=== PATIENT | male | born 1940 | race Caucasian/White ===

== ENCOUNTER 2023-05-16 21:00 | Emergency (ER) | payer MEDICARE, MEDICAID, SELFPAY ==
--- NOTE | ~2023-05-16 | CT_ITS ---
EXAMINATION: CT cervical spine wo con DATE: 05/16/2023 22:28 INDICATION: Unwitnessed fall. Patient unable to provide history acute mental status. TECHNIQUE: Computed tomography (CT) of the cervical spine was performed without intravenous contrast. Automated exposure control and iterative reconstruction technique were employed. The dose-length pro duct was 273.59 mGy-cm. COMPARISON: None FINDINGS: 14 degree cervicothoracic levocurvature. Sagittal alignment is normal. Vertebral body heights are nor mal. No acute fracture. Moderate disc height loss at C5-C6 and mild disc height loss at C3-C4, C4-C5 and C6-C7. Small disc osteophyte complexes resulting in mild central canal stenosis at C3-C4 through C5-C6. Bilateral moderate uncovertebral osteoarthritis at C3-C4 through C5-C6. There is also a latera l mild to moderate right-sided predominant cervical facet osteoarthritis. This contributes to moderat e neural foraminal stenosis on the right at C3-C4 and on the left at C5-C6. Mild neural foraminal jay nosis at a few of the remaining cervical levels. Cervical soft tissues are unremarkable. Visualized u pper lungs are clear. IMPRESSION: 1. Mild to moderate cervical spondylosis. No acute osseous abnormality. Reviewed, dictated and finalized at location A. [employer]NAG[employer]
--- NOTE | ~2023-05-16 | CT_ITS ---
EXAMINATION: CT brain wo con DATE: 05/16/2023 22:28 INDICATION: Anticoagulated patient post unwitnessed fall. Patient unable to provide history due to il ntal status. TECHNIQUE: Computed tomography (CT) of the head was performed without intravenous contrast. Sagittal and coronal reconstructions were performed. The mA was adjusted according to patient size. Iterative reconstruction technique was employed. The dose-length product was 1210.67 mGy-cm. COMPARISON: None FINDINGS: No fracture. Localized collection of CSF attenuation at the anterior aspect of the right middle crani al fossa which appears to exert mild mass effect upon the anterior right temporal lobe without associ ated encephalomalacia which could be most consistent with an arachnoid cyst measuring approximately 3 .5 x 2.5 x 2.0 cm. No acute intracranial hemorrhage, acute infarction or other abnormal extra axial f luid collection. There is mild scattered white matter hypoattenuation consistent with chronic small v essel ischemic disease. Symmetric prominence of the sulci consistent with moderate age-appropriate di ffuse cerebral volume loss. Ventricles are normal and symmetric. No mass/mass effect. The orbits and mastoid air cells are normal. Mucosal thickening and dependently layering fluid/mucus in the right ma xillary sinus. IMPRESSION: 1. No fracture or acute intracranial process. 2. Age-related changes including moderate diffuse volume loss and mild scattered white matter hypoatt enuation consistent with chronic small vessel ischemic disease. 3. Arachnoid cyst at the anterior right middle cranial fossa. 4. Mucosal thickening and dependently layering fluid in the right maxillary sinus. Correlate clinical ly for acute sinusitis. Reviewed, dictated and finalized at location A. X DEVELOPER IMPRESSION: 1. No fracture or acute intracranial process. 2. Age-related changes including moderate diffuse volume loss and mild scattere d white matter hypoattenuation consistent with chronic small vessel ischemic di sease. 3. Arachnoid cyst at the anterior right middle cranial fossa. 4. Mucosal thickening and dependently layering fluid in the right maxillary sin us. Correlate clinically for acute sinusitis.
[2023-05-16 21:07] VITALS: BP 141/87; PULSE 74; RESP 17; TEMP 37; O2SAT 100
[2023-05-16 22:57] VITALS: BP 118/70; PULSE 57; RESP 15; O2SAT 99
--- NOTE | 2023-05-16 23:11 | ED.GENADULT ---
HPI - General Adult General Chief complaint: Fall Stated complaint: fall Time Seen by Provider: 05/16/23 21:22 History of Present Illness HPI narrative: This is an 82-year-old male sent from the halfway for an unwitnessed fall. He is A&O x1. He has no complaints and does not remember any fall. Patient does take Eliquis Related Data Allergies Allergy/AdvReac Type Severity Reaction Status Date / Time No Known Allergies Allergy Verified 05/16/23 21:33 Exam Narrative: APPEARANCE: No apparent distress., patient smells of urine, A&O x1 which is baseline Head: atraumatic. EYES: EOMI, NOSE: Atraumatic NECK: Trachea midline RESPIRATORY: No increased rate of breathing CTAB CARDIOVASCULAR: RRR, ABDOMINAL: Non-distended soft nontender no guarding or rebound MUSCULOSKELETAl: head to toe trauma exam unremarkable NEURO: Alert. Cranial nerves 2-12 grossly intact. Sensation light touch, motor function cerebellar function intact for 4 extremities. Gait exam was deferred SKIN:: Warm, dry. Normal color PSYCHIATRIC: Normal affect Course Vital Signs Vital signs: Vital Signs Temperature 98.6 F 05/16/23 21:07 Pulse Rate 74 05/16/23 21:07 Respiratory Rate 17 05/16/23 21:07 Blood Pressure 141/87 H 05/16/23 21:07 Pulse Oximetry 100 05/16/23 21:07 Oxygen Delivery Room Air 05/16/23 21:07 Temperature 98.6 F 05/16/23 21:07 Pulse Rate 61 05/17/23 01:24 Respiratory Rate 15 05/17/23 01:24 Blood Pressure 119/76 05/17/23 01:24 Pulse Oximetry 97 05/17/23 01:24 Oxygen Delivery Room Air 05/16/23 21:07 Medical Decision Making [facility] [place] Narrative Medical decision making narrative: -Course: 82-year-old dementia patient presenting his fall. Trauma workup negative. Patient smelled of urine on arrival so screening lab work and UA were obtained which did not reveal evidence of infection. Patient be discharged back to halfway -DDX includes but is not limited to: intracranial hemorrhage, dementia, UTI, sepsis, dehydration -Co-morbidities complicating care: dementia, chronic anticoagulation -Social determinants of health: halfway resident, -Independent interpretation of studies: CT head and C-spine for acute injury. -Shared decision making / Disposition: discharge Vital Signs Vital Signs: Vital Signs Temperature 98.6 F 05/16/23 21:07 Pulse Rate 74 05/16/23 21:07 Respiratory Rate 17 05/16/23 21:07 Blood Pressure 141/87 H 05/16/23 21:07 Pulse Oximetry 100 05/16/23 21:07 Oxygen Delivery Room Air 05/16/23 21:07 Temperature 98.6 F 05/16/23 21:07 Pulse Rate 61 05/17/23 01:24 Respiratory Rate 15 05/17/23 01:24 Blood Pressure 119/76 05/17/23 01:24 Pulse Oximetry 97 05/17/23 01:24 Oxygen Delivery Room Air 05/16/23 21:07 Lab Data 05/17/23 00:14 05/17/23 00:14 Labs: Lab Results 05/17/23 05/17/23 Range/Units 00:14 02:20 WBC 7.6 (4.5-10.0) K/mm3 RBC 3.99 L (4.6-6.20) M/mm3 Hgb 12.5 L (14.0-18.0) g/dL Hct 38.5 L (42.0-52.0) % MCV 96.5 (80-100) fl MCH 31.3 (26-34) pg MCHC 32.5 (32-36) g/dl RDW 14.1 (11.5-14.5) % Plt Count 194 (150-375) k/mm3 MPV 10.9 H (7.4-10.4) fl Immature Gran % (Auto) 0.4 (0-0.5) % Neut % (Auto) 69.9 (45.5-73.1) % Lymph % (Auto) 20.1 (18.3-44.2) % Bond % (Auto) 7.3 (2.6-8.5) % Eos % (Auto) 1.6 (0-4.4) % Baso % (Auto) 0.7 (0.2-1.2) % Lymph # (Auto) 1.53 (0.9-3.2) K/mm3 Bond # (Auto) 0.6 (0.1-0.6) K/mm3 Eos # (Auto) 0.1 (0-0.3) K/mm3 Baso # (Auto) 0.1 (0.0-0.1) K/mm3 Abs Immat Gran (auto) 0.03 (0.00-0.031) K/mm3 Absolute Neuts (auto) 5.3 (1.3-6.7) K/mm3 Absolute Nucleated RBC 0.0 (0.0-0.012) K/mm3 Nucleated RBC % 0.0 (0.0-0.2) % Sodium 141 (137-145) mmol/L Potassium 4.3 (3.4-5.0) mmol/L Chloride 112 H (98-107) mmol/L Carbon Dioxide 23 (22-30) mmol/L Anion Gap 6 L (
[2023-05-17 00:23] LABS: Basophils Absolute Auto 0.1 K/mm3 (0.0-0.1); Basophils Percent Auto 0.7 % (0.2-1.2); Eosinophils Absolute Auto 0.1 K/mm3 (0-0.3); Eosinophils Percent Auto 1.6 % (0-4.4); Hematocrit 38.5 % (42.0-52.0); Hemoglobin 12.5 g/dL (14.0-18.0); Immature Granulocyte Absolute 0.03 K/mm3 (0.00-0.031); Immature Granulocyte Percent A 0.4 % (0-0.5); Lymphocytes Absolute Auto 1.53 K/mm3 (0.9-3.2); Lymphocytes Percent Auto 20.1 % (18.3-44.2); Mean Corpuscular HGB Conc 32.5 g/dl (32-36); Mean Corpuscular Hemoglobin 31.3 pg (26-34); Mean Corpuscular Volume 96.5 fl (80-100); Mean Platelet Volume 10.9 fl (7.4-10.4); Monocytes Absolute Auto 0.6 K/mm3 (0.1-0.6); Monocytes Percent Auto 7.3 % (2.6-8.5); Neutrophils Absolute Auto 5.3 K/mm3 (1.3-6.7); Neutrophils Percent Auto 69.9 % (45.5-73.1); Platelet Count Result 194 k/mm3 (150-375); Red Blood Count 3.99 M/mm3 (4.6-6.20); Red Cell Distribution Width 14.1 % (11.5-14.5); White Blood Count 7.6 K/mm3 (4.5-10.0)
[2023-05-17 00:31] LABS: Alanine Aminotransferase 10 U/L (6-50); Albumin Level 3.7 g/dL (3.5-5.1); Alkaline Phosphatase 75 U/L (38-126); Anion Gap 6 mmol/L (8-16); Aspartate Amino Transferase 13 U/L (17-59); Bilirubin,Total 0.7 mg/dL (0.2-1.3); Blood Urea Nitrogen 38 mg/dL (9-20); Calcium 12.4 mg/dL (8.4-10.2); Carbon Dioxide 23 mmol/L (22-30); Chloride 112 mmol/L (98-107); Estimated CRCL calculation 29 ml/min; Estimated Glomerular Filt Rate 39; Glucose 108 mg/dL (65-110); Potassium 4.3 mmol/L (3.4-5.0); Sodium 141 mmol/L (137-145)
[2023-05-17 01:24] VITALS: BP 119/76; PULSE 61; RESP 15; O2SAT 97
[2023-05-17 02:30] LABS: Appearance Urine Clear (Clear); Bacteria Urine None Seen /hpf; Bilirubin Urine Negative (Negative); Blood Urine 2+ (Negative); Color Urine Yellow (Yellow); Glucose Urine UA Negative (Negative); Ketones Urine Negative (Negative); Leukocyte Esterase Ur Trace LEU/UL (Negative); Nitrate Urine Negative (Negative); Non Pathogenic Casts 0-2; Protein Urine Negative (Negative); RBC Urine 21-50 /hpf (0-2); Specific Grav Ur 1.014 (1.001-1.035); Squamous Epithelial Cell Urine None seen /hpf (Few); WBC Urine 0-5 /hpf; pH Urine 6.5 (5.0-9.0)
[2023-05-17 02:39] LABS: Add Urine Microscopic? YES
== END 2023-05-17 03:37 ==
PROVIDERS: Emergency Provider Emergency Medicine; PCP Internal Medicine
DX: Z71.1 Person with feared health complaint in whom no diagnosis is made (principal); W19.XXXA Unspecified fall, initial encounter; Z79.01 Long term (current) use of anticoagulants
CPT/HCPCS: 36415; 70450; 72125; 80053; 81001; 85025; 99284

== ENCOUNTER 2023-05-23 13:16 | Inpatient (IN) | payer MEDICARE, MEDICAID, SELFPAY ==
[2023-05-23] VITALS (10 sets, daily range): BP systolic 124–140; BP diastolic 83–98; PULSE 67–88; RESP 13–20; TEMP 36–36.8; O2SAT 96–100
--- NOTE | ~2023-05-23 | US_ITS ---
EXAMINATION: US renal BI DATE: 05/25/2023 09:13 INDICATION: Acute on chronic kidney disease TECHNIQUE: Multiple grayscale and Doppler ultrasound images of the kidneys were obtained. COMPARISON: None. FINDINGS: The right kidney measures 11.4 x 6.8 x 7.8 cm and contains multiple cysts which measure up to 6.5 cm. The left kidney measures 10.4 x 6.5 x 5.6 cm. The kidneys demonstrate increased parenchyma l echogenicity. There is no hydronephrosis. The bladder is unremarkable. IMPRESSION: 1. Medical renal disease Reviewed, dictated and finalized at location B. AT OPERATOR IMPRESSION: 1. Medical renal disease
--- NOTE | ~2023-05-23 | XR_ITS ---
EXAMINATION: XR chest 1V portable INDICATION: Weakness TECHNIQUE: Portable AP chest at 1439 hours COMPARISON: None available FINDINGS: The lungs are free of acute opacities. No pleural effusion or pneumothorax. Surgical change s are noted near the gastroesophageal junction. The cardiomediastinal silhouette is normal. There lorna ears is an old left clavicle fracture. IMPRESSION: 1. No acute cardiopulmonary abnormality. Reviewed, dictated and finalized at location B. T CONTROL CLERK
--- NOTE | 2023-05-23 13:19 | ECG_ITS ---
Measurements Intervals [place] Rate: 76 P: 76 MT: 218 QRS: -72 QRSD: 160 T: 86 QT: 401 QTc: 451 Interpretive Statements SINUS RHYTHM WITH FIRST DEGREE AV BLOCK MARKED LEFT AXIS DEVIATION [QRS AXIS < -30] LEFT BUNDLE BRANCH BLOCK [120+ ms QRS DURATION, 80+ ms Q/S IN V1/V2, 85+ ms R IN I/aVL/V5/V6] NO PREVIOUS ECG AVAILABLE FOR COMPARISON Electronically Signed On 05-23-2023 15:38:52 ELEVATOR BUILDER by Everardo Valentin M.D.
[2023-05-23 13:51] LABS: Basophils Percent Auto 0.4 % (0.2-1.2); Eosinophils Percent Auto 0.2 % (0-4.4); Hematocrit 44.1 % (42.0-52.0); Hemoglobin 14.1 g/dL (14.0-18.0); Immature Granulocyte Absolute 0.07 K/mm3 (0.00-0.031); Immature Granulocyte Percent A 0.7 % (0-0.5); Lymphocytes Absolute Auto 1.08 K/mm3 (0.9-3.2); Lymphocytes Percent Auto 10.5 % (18.3-44.2); Mean Corpuscular Hemoglobin 31.2 pg (26-34); Mean Corpuscular Volume 97.6 fl (80-100); Mean Platelet Volume 11.4 fl (7.4-10.4); Monocytes Absolute Auto 0.7 K/mm3 (0.1-0.6); Monocytes Percent Auto 6.6 % (2.6-8.5); Neutrophils Absolute Auto 8.4 K/mm3 (1.3-6.7); Neutrophils Percent Auto 81.6 % (45.5-73.1); Platelet Count Result 228 k/mm3 (150-375); Red Blood Count 4.52 M/mm3 (4.6-6.20); White Blood Count 10.3 K/mm3 (4.5-10.0)
[2023-05-23 14:01] LABS: Creatine Kinase 28 U/L (55-170)
[2023-05-23 14:02] LABS: INR 1.6; Prothrombin Time 20.1 Seconds (11.1-14.7)
[2023-05-23 14:02] LABS: Alanine Aminotransferase 16 U/L (6-50); Alkaline Phosphatase 97 U/L (38-126); Anion Gap 12 mmol/L (8-16); Aspartate Amino Transferase 17 U/L (17-59); Blood Urea Nitrogen 49 mg/dL (9-20); Calcium 13.5 mg/dL (8.4-10.2); Carbon Dioxide 18 mmol/L (22-30); Chloride 114 mmol/L (98-107); Estimated CRCL calculation 19 ml/min; Estimated Glomerular Filt Rate 26; Glucose 167 mg/dL (65-110); Magnesium 2.7 mg/dL (1.6-2.3); Potassium 4.2 mmol/L (3.4-5.0); Sodium 144 mmol/L (137-145)
[2023-05-23 14:03] LABS: Partial Thromboplastin Time 33.1 SECONDS (22.3-36.8)
[2023-05-23 14:15] LABS: Troponin I 0.046 ng/mL (0.000-0.034)
[2023-05-23 14:27] LABS: Influenza A QL RT-PCR Positive (Negative); Influenza B QL RT-PCR Negative (Negative); RSV RNA, RT-PCR Negative (Negative); SARS-CoV-2 RNA PCR Negative (Negative)
[2023-05-23 14:37] LABS: Appearance Urine Clear (Clear); Bacteria Urine None Seen /hpf; Bilirubin Urine Negative (Negative); Blood Urine 3+ (Negative); Color Urine Yellow (Yellow); Glucose Urine UA Negative (Negative); Ketones Urine Trace mg/dL (Negative); Leukocyte Esterase Ur Trace LEU/UL (Negative); Need Manual Microscopic Reviewed; Nitrate Urine Negative (Negative); Protein Urine 1+ mg/dL (Negative); RBC Urine >100 /hpf (0-2); Specific Grav Ur 1.016 (1.001-1.035); Squamous Epithelial Cell Urine Occasional /hpf (Few); pH Urine 5.5 (5.0-9.0)
[2023-05-23 14:38] LABS: Add Urine Microscopic? YES
--- NOTE | 2023-05-23 14:56 | ED.GENADULT ---
HPI - General Adult General Chief complaint: Weakness Stated complaint: weakness Time Seen by Provider: 05/23/23 14:24 Source: patient Limitations: no limitations History of Present Illness HPI narrative: Patient is an 82-year-old male presents to the emergency department complaining of not feeling well. Patient states he has not been feeling well for approximately 1 week, admits to feeling dehydrated, admits to generalized body aches. Patient denies fever the patient admits to a possible slight dry cough. Patient denies chest pain, difficulty breathing, urinary discomfort, bloody bowel movements, diarrhea, nausea, vomiting, abdominal pain, rash, recent injuries, recent illness, sick contacts, numbness, focal weakness, history of blood clots, unilateral lower extremity swelling. patient does admit to some fatigue. Related Data Allergies Allergy/AdvReac Type Severity Reaction Status Date / Time No Known Allergies Allergy Verified 05/16/23 21:33 Review of Systems Review of Systems: A 10 system review of systems was completed on the patient and is negative except for what is stated in the HPI. Nursing and ancillary documentation was reviewed. [facility] Comments At time of signature, I have reviewed and agree with nursing past medical, surgical, social and family history unless otherwise noted. Please see the nursing chart for further information. There is no relevant family history pertinent to the presenting complaint. Exam Narrative: CONST: No acute distress. HENMT: Head is normocephalic and atraumatic. Dry mucous membranes. No posterior oropharynx erythema. EYES: No conjunctival icterus, injection, or pallor. PERRL. NECK: No meningeal signs. no palpable cervical lymphadenopathy. RESP: Able to speak in full sentences. Normal respiratory effort. CTAB. CARDIO: Regular rate. Regular rhythm. 2+ DP and radial pulses bilaterally. GI: Nondistended. No tenderness to palpation. Soft. : No CVA tenderness to palpation. SKIN: No rashes or lesions noted on exposed skin. NEURO: Oriented x3. Moves all extremities. No focal neurological deficits. EXTREM/MSK/BACK: No pedal edema. PSYCH: Normal affect. Course Vital Signs Vital signs: Vital Signs Temperature 96.8 F L 05/23/23 13:18 Pulse Rate 76 05/23/23 13:18 Respiratory Rate 20 05/23/23 13:18 Blood Pressure 124/86 05/23/23 13:18 Pulse Oximetry 99 05/23/23 13:18 Oxygen Delivery Room Air 05/23/23 13:18 Temperature 96.8 F L 05/23/23 13:18 Pulse Rate 74 05/23/23 13:45 Respiratory Rate 15 05/23/23 13:45 Blood Pressure 128/88 05/23/23 13:45 Pulse Oximetry 99 05/23/23 13:45 Oxygen Delivery Room Air 05/23/23 13:18 Medical Decision Making MDM Narrative Medical decision making narrative: Patient presents with the above complaint. Initial vitals are remarkable for no significant abnormalities. Physical examination as noted above. Plan discussed: Laboratory analysis, EKG, chest x-ray, continues cardiac monitoring, continuous pulse oximetry, 2 L bolus IV fluids normal saline for hydration. I spoke with the hospitalist on-call who has accepted the patient for admission. Differential Diagnosis Differential Diagnosis: Metabolic derangement, dehydration, ACS, viral syndrome, UTI, thyroid dysfunction. Medical Records Medical records reviewed: Yes I reviewed the external patient's medical records. Vital Signs Vital Signs: Vital Signs Temperature 96.8 F L 05/23/23 13:18 Pulse Rate 76 05/23/23 13:18 Respiratory Rate 20 05/23/23 13:18 Blood Pressure 124/86 05/23/23 13:18 Pulse Oximetry 99 05/23/23 13:18 Oxygen Delivery Room Air 05/23/23 13:18 Temperature 96.8 F L 05/23/23 13:18 Pulse Rate 74 05/23/23 13:45 Respiratory Rate 15 05/23/23 13:45 Blood Pressure 128/88 05/23/23 13:45 Pulse Oximetry 99 05/23/23 13:45 Oxygen Delivery Room Air 05/23/23 13:18 Lab Data Lab res
[2023-05-23] MEDS: SODIUM CHLORIDE 0.9% IV 1,000 ML 999 ML IV CONT ×2 (15:27)
[2023-05-23 15:29] LABS: Lipase 49 U/L (23-300); Phosphorus 3.8 mg/dL (2.5-4.5)
--- NOTE | 2023-05-23 15:42 | PM.IMHP ---
H&P: HPI History of Present Illness Date/Time: 05/23/23 15:42 Chief Complaint: Generalized Weakness Narrative: 82 y/o M presents here with generalized weakness with PMH of cerebral cysts, anorexia, TIA, CVA with residual deficits, vitamin D deficiency, dementia with psychotic disturbance, anxiety, hypercalcemia, DVT, and a cognitive communication deficits. Patient presented here with general malaise for the past week. States he has felt dehydrated . Accompanied by cough (dry), fatigue, and generalized body aches. Denies fever or chills. No CP, SOB, urinary symptoms, difficulty with urination, focal weakness or numbness, or N/V/D. Currently residing at [facility]. Patient refusing further questions. Initial VS at presentation: 96.8 F, HR 76, RR 20, 124/86, 99% on RA. ED workup showed no leukocytosis with WBC 10.3, anemia creatinine 2.4 ( previously 1.7 on 05/17), BUN 49, GFR 26, glucose 167, lactic acid 3.0, calcium 13.5 (previously 12.4 on 05/17), magnesium 2.7 CK 20, troponin 0.046, and UA suspicious for UTI. Viral PCR was positive for Flu A. CXR: no acute cardiopulmonary abnormality. EKG showed sinus rhythm with first-degree AV block, marked axis deviation, and LBB. Review of Systems Review of Systems: ROS unobtainable: Yes unobtainable due to mental status [facility] Past Medical History Medical History (Updated 05/23/23 @ 23:49 by Denice Armenta, EGG CRATER) Anorexia Anxiety Cerebral cysts Cognitive communication deficit CVA (cerebral vascular accident) Dementia with psychotic disturbance DVT (deep venous thrombosis) Hypercalcemia TIA (transient ischemic attack) Vitamin A deficiency Meds Home Medications and Allergies Home Medications Medication Instructions Recorded Confirmed Type amlodipine 10 mg tablet 10 mg PO DAILY 05/23/23 05/23/23 History apixaban 5 mg tablet (Eliquis) 5 mg PO BID 05/23/23 05/23/23 History aspirin 81 mg tablet 81 mg PO DAILY 05/23/23 05/23/23 History bisacodyl 10 mg rectal suppository 10 mg RECTAL DAILY PRN Constipation 05/23/23 05/23/23 History cyanocobalamin (vitamin B-12) 1,000 mcg subcut WEEKLY 05/23/23 05/23/23 History 1,000 mcg/mL injection solution donepezil 5 mg tablet 5 mg PO DAILY 05/23/23 05/23/23 History ergocalciferol (vitamin D2) 50,000 50,000 unit PO WEEKLY 05/23/23 05/23/23 History unit tablet haloperidol 0.5 mg tablet 0.5 mg PO DAILY 05/23/23 05/23/23 History haloperidol 1 mg tablet 1 mg PO DAILY 05/23/23 05/23/23 History magnesium citrate (Citroma oral 296 ml PO DAILY PRN Constipation 05/23/23 05/23/23 History solution) magnesium hydroxide 400 mg/5 mL 30 ml PO DAILY 05/23/23 05/23/23 History oral suspension (Milk of Magnesia) megestrol 400 mg/10 mL (40 mg/mL) 800 mg PO DAILY 05/23/23 05/23/23 History oral suspension memantine 5 mg tablet 5 mg PO BID 05/23/23 05/23/23 History mirtazapine 15 mg tablet 15 mg PO DAILY 05/23/23 05/23/23 History polyethylene glycol 3350 17 gram 17 g PO DAILY PRN Constipation 05/23/23 05/23/23 History oral powder packet quetiapine 25 mg tablet 25 mg PO DAILY 05/23/23 05/23/23 History sennosides 8.6 mg-docusate sodium 1 tab-cap PO BID 05/23/23 05/23/23 History 50 mg tablet (Senna Plus) sodium phosphates 19 gram-7 118 ml RECTAL ONCE PRN Constipation 05/23/23 05/23/23 History gram/118 mL enema (Fleet Enema) Allergies Allergy/AdvReac Type Severity Reaction Status Date / Time No Known Allergies Allergy Verified 05/16/23 21:33 Vital Signs Vital Signs - 24 hr 05/23/23 13:18 05/23/23 13:40 05/23/23 13:33 Temperature 96.8 F L Pulse Rate 76 78 78 Respiratory Rate 20 13 Blood Pressure 124/86 Pulse Oximetry 99 98 Oxygen Delivery Room Air 05/23/23 13:45 Temperature Pulse Rate 74 Respiratory Rate 15 Blood Pressure 128/88 Pulse Oximetry 99 Oxygen Delivery Exam Const: General: comfortable and no acute distress Other: non-toxic appearance, frail, , male
--- NOTE | 2023-05-23 16:39 | PC.NURSE ---
Patient arrived to unit. Patient is nonverbal for RN at this time. RN called [facility] where patient is from and asked them to fax paperwork and medications over as RN cannot complete admission or medication reconciliation from patient.
[2023-05-23 16:52] LABS: Reflex Lactic Acid Yes or No Add Lactic
[2023-05-23 17:11] LABS: Lactic Acid Reflex 1.9 mmol/L (0.7-2.0)
[2023-05-23 18:20] LABS: Vitamin D 25 Hydroxy 52.6 ng/mL
--- NOTE | 2023-05-23 21:47 | ADMGEN ---
This patient, Salo Morgna, was admitted to Medical Room 342-01. Patient/family oriented to hospital policies and general routines including ID bracelet, bed and alarms, visiting hours, pain management, procedures, bathroom and other care routines, personal items, smoking policy, room service/diet, and visiting hours. Information on how to activate the Rapid Response Team has been discussed. Patient/Family are encouraged to report perceived risks to care and to ask questions if they do not understand what they are told or what they should do.
[2023-05-23] MEDS: APIXABAN 5 MG TABLET PO (23:30)
[2023-05-23] MEDS: MEMANTINE 5 MG TABLET PO (23:30)
[2023-05-23] MEDS: SODIUM CHLORIDE 0.9% IV 1,000 ML 125 ML IV CONT (23:33)
[2023-05-24] VITALS (9 sets, daily range): BP systolic 110–138; BP diastolic 71–91; PULSE 66–74; RESP 18–20; TEMP 36.5–36.6; O2SAT 97–100
[2023-05-24 06:20] LABS: Hematocrit 37.2 % (42.0-52.0); Mean Corpuscular HGB Conc 32.3 g/dl (32-36); Mean Corpuscular Hemoglobin 31.6 pg (26-34); Mean Corpuscular Volume 97.9 fl (80-100); Mean Platelet Volume 11.3 fl (7.4-10.4); Platelet Count Result 187 k/mm3 (150-375); Red Cell Distribution Width 13.9 % (11.5-14.5)
[2023-05-24 06:28] LABS: Creatine Kinase 23 U/L (55-170)
[2023-05-24 06:29] LABS: Alanine Aminotransferase 10 U/L (6-50); Albumin Level 3.1 g/dL (3.5-5.1); Alkaline Phosphatase 75 U/L (38-126); Anion Gap 6 mmol/L (8-16); Aspartate Amino Transferase 15 U/L (17-59); Bilirubin,Total 0.8 mg/dL (0.2-1.3); Blood Urea Nitrogen 45 mg/dL (9-20); Calcium 12.2 mg/dL (8.4-10.2); Carbon Dioxide 19 mmol/L (22-30); Chloride 120 mmol/L (98-107); Estimated CRCL calculation 20 ml/min; Estimated Glomerular Filt Rate 29; Glucose 95 mg/dL (65-110); Potassium 3.8 mmol/L (3.4-5.0); Sodium 145 mmol/L (137-145)
[2023-05-24 06:39] LABS: Parathyroid Intact 280.2 pg/mL (7.5-53.5)
[2023-05-24 09:28] LABS: NT Pro B Type Natriuretic Pept 939 pg/mL (19.9-100); Troponin I 0.038 ng/mL (0.000-0.034)
[2023-05-24] MEDS: SENNA/DOCUSATE SODIUM TABLET 1 TAB PO ×2 (09:57→17:33)
[2023-05-24] MEDS: ASPIRIN 81 MG ENTERIC TABLET PO (09:57)
[2023-05-24] MEDS: QUEtiapine FUMARATE 25 MG TABLET PO (09:58)
[2023-05-24] MEDS: APIXABAN 5 MG TABLET PO ×2 (09:58→20:22)
[2023-05-24] MEDS: amLODIPine BESYLATE 5 MG TABLET 10 MG PO (09:58)
[2023-05-24] MEDS: MEMANTINE 5 MG TABLET PO ×2 (09:58→20:22)
[2023-05-24] MEDS: BENZONATATE 100 MG CAPSULE PO ×2 (09:58→17:33)
[2023-05-24] MEDS: HALOPERIDOL 0.5 MG TABLET 1.5 MG PO (10:02)
[2023-05-24] MEDS: MIRTAZAPINE 15 MG TABLET PO (10:03)
[2023-05-24] MEDS: MAGNESIUM HYDROXIDE SUSP 30 ML UDC PO (10:03)
[2023-05-24] MEDS: DONEPEZIL HCL 5 MG TABLET PO (10:03)
[2023-05-24] MEDS: MEGESTROL ACETATE (*CHEMO) ORAL SUSP 40 MG/ML SYR 800 MG PO (10:03)
[2023-05-24] MEDS: SODIUM CHLORIDE 0.9% IV 1,000 ML 125 ML IV CONT ×2 (10:06→20:23)
--- NOTE | 2023-05-24 11:07 | PCCARD ---
PATIENT REFUSED ECHOCARDIOGRAM 05/24/23 @11:00 - CANCELLED ORDER
--- NOTE | 2023-05-24 11:57 | PM.IMPN ---
Progress Note: A&P Assessment and Plan (1) Influenza A: Code(s): J10.1 - Influenza due to other identified influenza virus with other respiratory manifestations Status: Acute Assessment and Plan: - symptom onset: approx 05/16 - tested positive on: 05/23/23 - started on Tamiflu on 05/23 - continue supportive measures Tylenol p.r.n. Zofran p.r.n. Tessalon Perles p.r.n. IV hydration - no evidence of pneumonia on CXR No SOB. Patient denied cough, frequent sneezing observed on assessment (2) CHINEDU (acute kidney injury): Code(s): N17.9 - Acute kidney failure, unspecified Status: Acute Assessment and Plan: - Renal Function 05/17/23 -> 05/23/23 creatinine 1.7 -> 2.4 BUN 38 -> 49 ECC 29 -> 19 GFR 39 -> 26 - Nephrology consulted, awaiting recs. - IV Fluids- NS @ 100 - monitor renal function - monitor I&Os 05/24- creatinine- 2.20 BUN- 45 ECC- 20 GFR - 29 (3) Elevated troponin: Code(s): R79.89 - Other specified abnormal findings of blood chemistry Status: Acute Assessment and Plan: - Troponin: 0.046 -> 0.050 - EKG, initial: sinus rhythm with first-degree AV block, marked left axis deviation, LBB, no previous EKG for comparison. - no active chest pain - suspect demand ischemia source of troponin 05/24 Troponin continued to rend down -> 0.038 BNP elevated at 939- suspect demand ischemia Echo ordered (4) Elevated lactic acid level: Code(s): R79.89 - Other specified abnormal findings of blood chemistry Status: Acute Assessment and Plan: - does not meet SIRS criteria, no blood cultures ordered - lactic acid 3.0 - possible UTI, Flu A+ - given 2L bolus of NS, started on Ceftriaxone and Tamiflu - repeat lactic - suspect elevation secondary to current CHINEDU 05/24- Lactic acid trended down to 1.9 (05/23) (5) Hypercalcemia: Code(s): E83.52 - Hypercalcemia Status: Acute Assessment and Plan: - Ca 13.5, previously 12.4 on 05/17 - repeat post fluid resuscitation - PTH ordered, TSH within normal limits - add vitamin-D 25 hydroxy 05/24 PTH elevated 280.2 Ca- 12.2 ionized Ca ordered- Pending (6) Acute UTI: Code(s): N39.0 - Urinary tract infection, site not specified Status: Acute Assessment and Plan: - UA: 1+ protein, trace ketones, 3+ blood, trace leuk esterase, greater than 100 rbc's, 6-10 wbc's, occasional epithelial cells - UC pending - started on cephalexin, exchanged to ceftriaxone IVPB on 05/23 Patient continues to deny urinary symptoms Plan Flu A+, CHINEDU, and elevated calcium. awaiting nephrology consultation. Here for IV fluids, started on ceftriaxone, and PTH ordered. Diet: regular GI Prophylaxis: Not currently indicated DVT Prophylaxis: SCDs, continue home Eliquis Lines: pIV Code Status: Full Code Time Spent With Patient Time with patient: 15 - 25 minutes Subjective Date/time seen: 05/24/23 1000 Interval history: 82 year old male examined at bedside in interval assessment as he presented from [facility] to ER with weakness for the past few weeks. Patient expressed he felt dehydrated and had body aches. ED workup showed? no leukocytosis with WBC 10.3, anemia creatinine 2.4 ( previously 1.7 on 05/17),? BUN 49, GFR 26, glucose 167, lactic acid 3.0, calcium 13.5 (previously 12.4 on 05/17), magnesium 2.7 CK 20, troponin 0.046, and UA suspicious for UTI. Viral PCR was positive for Flu A. CXR: no acute cardiopulmonary abnormality. ? EKG showed sinus rhythm with first-degree AV block, marked axis deviation, and LBB. He was admitted for CHINEDU, UTI, Flu A+ and hypercalcemia. He is receiving IV fluids and ceftriaxone. Today he presents alert and expressed generalized weakness. He denies pain, chest pain, pain with urination, or SOB. He is noted to stop responding if too many questions are asked in this interview. Nephrology has been consulted and we appreciate any recommendat
--- NOTE | 2023-05-24 12:30 | P.CONNP_ITS ---
Assessment and Plan Assessment and plan (1) CHINEDU (acute kidney injury): Code(s): N17.9 - Acute kidney failure, unspecified Status: Acute Assessment and Plan: * mild improvement since admission * agree with trial of IVFs * check urine studies and renal ultrasound * CPK normal * follow repeat labs and UOP (2) CKD (chronic kidney disease): Code(s): N18.9 - Chronic kidney disease, unspecified Status: Chronic Assessment and Plan: * baseline creatinine/GFR not known * creatinine 1.7mg/dl noted earlier this month (on ER visit) * attempting to get records from nursing facility * suspect related to HTN, vascular disease, and age-related change (3) Influenza A: Code(s): J10.1 - Influenza due to other identified influenza virus with other respiratory manifestations Status: Acute Assessment and Plan: * positive testing in ER (on 05/23/23) * inititated on Tamiflu * continue supportive measures * follow respirator status (4) Hypercalcemia: Code(s): E83.52 - Hypercalcemia Status: Acute Assessment and Plan: * caclium 13.5 on admission (previously 12.4 on 05/17/23 ER visit) * improvement noted with IVFs * related to volume depletion? * elevated PTH noted with adequate Vitamin D * primary hyperparathyroidism? * given histroy of CKD, cannot discount secondary hyperparathyroidism * hold ergocalciferol * check SPEP and UPEP * consider bone scan and/pr NM parathyroid imaging * consider calcitonin versus pamidronate use but hold given improvement in calcium with current therapy * follow trend of repeat calcium levels (5) Acute UTI: Code(s): N39.0 - Urinary tract infection, site not specified Status: Acute Assessment and Plan: * admission UA suggestive * follow-up on urine culture * on antibiotics (6) Hypertension: Code(s): I10 - Essential (primary) hypertension Status: Chronic Assessment and Plan: * resonable control at this time * follow trend oif hemodynamics I will continue follow patient with you while he remains hospitalized and make further recommendations as deemed necessary. Thank you for allowing me to participate in care of this patient. History of Present Illness Reason for Consult Consult date: 05/24/23 Reason for consult: acute renal failure (on chronic kidney disease) Chief Complaint Chief complaint: influenza a History of Present Illness Narrative: All the information that I obtained is from review of the electronic medical record as well as the associated paper chart information from his nursing facility along with the physicians and nurses involved the patient's care as S is difficult to get much information from the patient due to his lack of cooperation and underlying dementia. The patient is an 82-year-old male with a past medical history as outlined below who presented to [facility] Emergency room for further evaluation generalized weakness. Apparently, the patient has been feeling quite weak for the last week in association with fatigue, dry cough, and generalized body aches. No reported fevers, chills, chest pain, shortness of breath, dysuria, numbness, tingling, nausea, vomiting, or diarrhea. He apparently has not been eating and drinking very well and the nursing staff at his facility felt he may also be getting dehydrated. Given these constellation of symptoms, he was transferred to the emergency room further assessment. Workup and evaluation in the emergency room demonstrated the patient be hemod
--- NOTE | 2023-05-24 12:30 | PM.CNNEP ---
Assessment and Plan Assessment and plan (1) CHINEDU (acute kidney injury): Code(s): N17.9 - Acute kidney failure, unspecified Status: Acute Assessment and Plan: mild improvement since admission agree with trial of IVFs check urine studies and renal ultrasound CPK normal follow repeat labs and UOP (2) CKD (chronic kidney disease): Code(s): N18.9 - Chronic kidney disease, unspecified Status: Chronic Assessment and Plan: baseline creatinine/GFR not known creatinine 1.7mg/dl noted earlier this month (on ER visit) attempting to get records from nursing facility suspect related to HTN, vascular disease, and age-related change (3) Influenza A: Code(s): J10.1 - Influenza due to other identified influenza virus with other respiratory manifestations Status: Acute Assessment and Plan: positive testing in ER (on 05/23/23) inititated on Tamiflu continue supportive measures follow respirator status (4) Hypercalcemia: Code(s): E83.52 - Hypercalcemia Status: Acute Assessment and Plan: caclium 13.5 on admission (previously 12.4 on 05/17/23 ER visit) improvement noted with IVFs related to volume depletion? elevated PTH noted with adequate Vitamin D primary hyperparathyroidism? given histroy of CKD, cannot discount secondary hyperparathyroidism hold ergocalciferol check SPEP and UPEP consider bone scan and/pr NM parathyroid imaging consider calcitonin versus pamidronate use but hold given improvement in calcium with current therapy follow trend of repeat calcium levels (5) Acute UTI: Code(s): N39.0 - Urinary tract infection, site not specified Status: Acute Assessment and Plan: admission UA suggestive follow-up on urine culture on antibiotics (6) Hypertension: Code(s): I10 - Essential (primary) hypertension Status: Chronic Assessment and Plan: resonable control at this time follow trend oif hemodynamics I will continue follow patient with you while he remains hospitalized and make further recommendations as deemed necessary. Thank you for allowing me to participate in care of this patient. History of Present Illness Reason for Consult Consult date: 05/24/23 Reason for consult: acute renal failure (on chronic kidney disease) Chief Complaint Chief complaint: influenza a History of Present Illness Narrative: All the information that I obtained is from review of the electronic medical record as well as the associated paper chart information from his nursing facility along with the physicians and nurses involved the patient's care as S is difficult to get much information from the patient due to his lack of cooperation and underlying dementia. The patient is an 82-year-old male with a past medical history as outlined below who presented to [facility] Emergency room for further evaluation generalized weakness. Apparently, the patient has been feeling quite weak for the last week in association with fatigue, dry cough, and generalized body aches. No reported fevers, chills, chest pain, shortness of breath, dysuria, numbness, tingling, nausea, vomiting, or diarrhea. He apparently has not been eating and drinking very well and the nursing staff at his facility felt he may also be getting dehydrated. Given these constellation of symptoms, he was transferred to the emergency room further assessment. Workup and evaluation in the emergency room demonstrated the patient be hemodynamically stable and afebrile. Routine blood test demonstrated the the foot with a a CBC with a normal white blood cell count and associated anemia with a chemistry that showed higher creatinine than baseline in association with hypercalcemia. His lactic acid was mildly elevated as well and his UA was somewhat concerning for possible urinary tract infection. Viral testing was done which was significant for infl
[2023-05-24] MEDS: OSELTAMIVIR PHOSPHATE 30 MG CAPSULE PO (17:33)
[2023-05-25] VITALS (9 sets, daily range): BP systolic 120–144; BP diastolic 75–80; PULSE 56–73; RESP 16–18; TEMP 36.4–37.2; O2SAT 96–97
[2023-05-25] MEDS: SODIUM CHLORIDE 0.9% IV 1,000 ML 75 ML IV CONT (04:52)
[2023-05-25 06:51] LABS: Basophils Percent Auto 0.6 % (0.2-1.2); Eosinophils Absolute Auto 0.2 K/mm3 (0-0.3); Eosinophils Percent Auto 3.1 % (0-4.4); Hematocrit 33.2 % (42.0-52.0); Hemoglobin 10.8 g/dL (14.0-18.0); Immature Granulocyte Absolute 0.05 K/mm3 (0.00-0.031); Immature Granulocyte Percent A 0.8 % (0-0.5); Lymphocytes Absolute Auto 1.55 K/mm3 (0.9-3.2); Lymphocytes Percent Auto 23.7 % (18.3-44.2); Mean Corpuscular HGB Conc 32.5 g/dl (32-36); Mean Corpuscular Hemoglobin 31.8 pg (26-34); Mean Corpuscular Volume 97.6 fl (80-100); Mean Platelet Volume 11.5 fl (7.4-10.4); Monocytes Absolute Auto 0.4 K/mm3 (0.1-0.6); Monocytes Percent Auto 6.1 % (2.6-8.5); Neutrophils Absolute Auto 4.3 K/mm3 (1.3-6.7); Neutrophils Percent Auto 65.7 % (45.5-73.1); Platelet Count Result 157 k/mm3 (150-375); Red Cell Distribution Width 13.6 % (11.5-14.5); White Blood Count 6.5 K/mm3 (4.5-10.0)
[2023-05-25 07:10] LABS: Alanine Aminotransferase 9 U/L (6-50); Albumin Level 2.6 g/dL (3.5-5.1); Alkaline Phosphatase 68 U/L (38-126); Anion Gap 5 mmol/L (8-16); Aspartate Amino Transferase 16 U/L (17-59); Bilirubin,Total 0.5 mg/dL (0.2-1.3); Blood Urea Nitrogen 38 mg/dL (9-20); Calcium 11.5 mg/dL (8.4-10.2); Carbon Dioxide 18 mmol/L (22-30); Chloride 121 mmol/L (98-107); Estimated CRCL calculation 22 ml/min; Estimated Glomerular Filt Rate 32; Glucose 87 mg/dL (65-110); Potassium 3.6 mmol/L (3.4-5.0); Sodium 144 mmol/L (137-145)
[2023-05-25] MEDS: ASPIRIN 81 MG ENTERIC TABLET PO (09:40)
[2023-05-25] MEDS: amLODIPine BESYLATE 5 MG TABLET 10 MG PO (09:40)
[2023-05-25] MEDS: DONEPEZIL HCL 5 MG TABLET PO (09:41)
[2023-05-25] MEDS: QUEtiapine FUMARATE 25 MG TABLET PO (09:41)
[2023-05-25] MEDS: MEGESTROL ACETATE (*CHEMO) ORAL SUSP 40 MG/ML SYR 800 MG PO (09:41)
[2023-05-25] MEDS: SENNA/DOCUSATE SODIUM TABLET 1 TAB PO ×2 (09:41→17:12)
[2023-05-25] MEDS: HALOPERIDOL 0.5 MG TABLET 1.5 MG PO (09:41)
[2023-05-25] MEDS: CYANOCOBALAMIN INJ 1,000 MCG/ML VIAL 1000 MCG SUB-Q (09:41)
[2023-05-25] MEDS: BENZONATATE 100 MG CAPSULE PO ×3 (09:41→17:12)
[2023-05-25] MEDS: MIRTAZAPINE 15 MG TABLET PO (09:41)
[2023-05-25] MEDS: APIXABAN 5 MG TABLET PO ×2 (09:41→20:11)
[2023-05-25] MEDS: MAGNESIUM HYDROXIDE SUSP 30 ML UDC PO (09:42)
[2023-05-25] MEDS: MEMANTINE 5 MG TABLET PO ×2 (09:42→20:11)
--- NOTE | 2023-05-25 10:56 | P.PNNP_ITS ---
Progress Note: A&P Assessment and Plan (1) CHINEDU (acute kidney injury): Code(s): N17.9 - Acute kidney failure, unspecified Status: Acute Assessment and Plan: * mild improvement since admission * continuetrial of IVFs * evaluation to date noted: * renal ultrasound c/w CKD/medcial renal disease * urine studies pending * CPK normal * UA noted * follow repeat labs and UOP (2) CKD (chronic kidney disease): Code(s): N18.9 - Chronic kidney disease, unspecified Status: Chronic Assessment and Plan: * baseline creatinine/GFR not known * creatinine 1.7mg/dl noted earlier this month (on ER visit) * awaiting records from nursing facility * suspect related to HTN, vascular disease, and age-related change (3) Influenza A: Code(s): J10.1 - Influenza due to other identified influenza virus with other respiratory manifestations Status: Acute Assessment and Plan: * positive testing in ER (on 05/23/23) * on Tamiflu * continue supportive measures * follow respirator status (4) Hypercalcemia: Code(s): E83.52 - Hypercalcemia Status: Acute Assessment and Plan: * wlow improvement noted * calcium 13.5 on admission (previously 12.4 on 05/17/23 ER visit) * related to just volume depletion? * improvement with just IVFs would argue at least a component of this... * elevated PTH noted with adequate Vitamin D * primary hyperparathyroidism? * given histroy of CKD, cannot discount secondary hyperparathyroidism * hold ergocalciferol * follow-up on SPEP and UPEP * consider bone scan and/pr NM parathyroid imaging (but suspect he may refuse as he did with Echo) * considered calcitonin versus pamidronate use but holding given improvement in calcium with current therapy * follow trend of repeat calcium levels (5) Hypertension: Code(s): I10 - Essential (primary) hypertension Status: Chronic Assessment and Plan: * resonable control at this time * follow trend oif hemodynamics Will continue to follow Subjective Date/time seen: 05/25/23 10:56 Interval history: Follow-up for acute kidney injury/acute renal failure on chronic kidney disease and hypercalcemia. Mentation seems about the same -- answers a few questions and then stops abruptly; calcium doing better with noted marginal improvement in creatinine; no apparent distress noted at the time of my visit. Exam Narrative: General: frail and elderly male in NAD Heart: normal S1 and S2; no rub Lungs: clear to auscultation Abdomen: soft, nontender, nondistended, positive bowel sounds Extremities: no cyanosis or clubbing; no edema Skin: warm and dry Objective Data Vital Signs Vital Signs: Vital Signs Temp Pulse Resp BP Pulse Ox O2 Del Method 05/25/23 10:30 98.1 F 73 16 120/80 96 05/25/23 08:00 56 L 05/25/23 06:00 97.6 F 56 L 18 144/75 H 97 05/24/23 23:07 97 Room Air 05/25/23 04:00 58 L 05/25/23 00:00 59 L 05/24/23 20:00 74 05/24/23 22:30 97.7 F 70 18 110/71 97 Intake/Output Intake/Output: Intake & Output 05/22/23 05/23/23 05/24/23 05/25/23 23:59 23:59 23:59 23:59 Intake Total 0 3660 1782 Balance 0 3660 1782
--- NOTE | 2023-05-25 10:56 | PM.PNNEP ---
Progress Note: A&P Assessment and Plan (1) CHINEDU (acute kidney injury): Code(s): N17.9 - Acute kidney failure, unspecified Status: Acute Assessment and Plan: mild improvement since admission continuetrial of IVFs evaluation to date noted: renal ultrasound c/w CKD/medcial renal disease urine studies pending CPK normal UA noted follow repeat labs and UOP (2) CKD (chronic kidney disease): Code(s): N18.9 - Chronic kidney disease, unspecified Status: Chronic Assessment and Plan: baseline creatinine/GFR not known creatinine 1.7mg/dl noted earlier this month (on ER visit) awaiting records from nursing facility suspect related to HTN, vascular disease, and age-related change (3) Influenza A: Code(s): J10.1 - Influenza due to other identified influenza virus with other respiratory manifestations Status: Acute Assessment and Plan: positive testing in ER (on 05/23/23) on Tamiflu continue supportive measures follow respirator status (4) Hypercalcemia: Code(s): E83.52 - Hypercalcemia Status: Acute Assessment and Plan: wlow improvement noted calcium 13.5 on admission (previously 12.4 on 05/17/23 ER visit) related to just volume depletion? improvement with just IVFs would argue at least a component of this... elevated PTH noted with adequate Vitamin D primary hyperparathyroidism? given histroy of CKD, cannot discount secondary hyperparathyroidism hold ergocalciferol follow-up on SPEP and UPEP consider bone scan and/pr NM parathyroid imaging (but suspect he may refuse as he did with Echo) considered calcitonin versus pamidronate use but holding given improvement in calcium with current therapy follow trend of repeat calcium levels (5) Hypertension: Code(s): I10 - Essential (primary) hypertension Status: Chronic Assessment and Plan: resonable control at this time follow trend oif hemodynamics Will continue to follow Subjective Date/time seen: 05/25/23 10:56 Interval history: Follow-up for acute kidney injury/acute renal failure on chronic kidney disease and hypercalcemia. Mentation seems about the same -- answers a few questions and then stops abruptly; calcium doing better with noted marginal improvement in creatinine; no apparent distress noted at the time of my visit. Exam Narrative: General: frail and elderly male in NAD Heart: normal S1 and S2; no rub Lungs: clear to auscultation Abdomen: soft, nontender, nondistended, positive bowel sounds Extremities: no cyanosis or clubbing; no edema Skin: warm and dry Objective Data Vital Signs Vital Signs: Vital Signs Temp Pulse Resp BP Pulse Ox O2 Del Method 05/25/23 10:30 98.1 F 73 16 120/80 96 05/25/23 08:00 56 L 05/25/23 06:00 97.6 F 56 L 18 144/75 H 97 05/24/23 23:07 97 Room Air 05/25/23 04:00 58 L 05/25/23 00:00 59 L 05/24/23 20:00 74 05/24/23 22:30 97.7 F 70 18 110/71 97 Intake/Output Intake/Output: Intake & Output 05/22/23 05/23/23 05/24/23 05/25/23 23:59 23:59 23:59 23:59 Intake Total 0 3660 1782 Balance 0 3660 1782 Meds/Results Medications: Active Medications Generic Name Dose Route Start Last Admin Trade Name Freq PRN Reason Stop Dose Admin Acetaminophen 500 mg 05/23/23 22:23 Acetaminophen 500 Mg Tablet PO Q4H PRN Mild Pain (1-3) or Fever Amlodipine Besylate 10 mg 05/24/23 09:00 05/25/23 09:40 Amlodipine Besylate 5 Mg Tablet PO 10 mg DAILY STEPHEN Administration Apixaban 5 mg 05/23/23 22:35 05/25/23 09:41 Apixaban 5 Mg Tablet PO 5 mg Q12HR STEPHEN Administration Aspirin 81 mg 05/24/23 09:00 05/25/23 09:40 Aspirin 81 Mg Enteric Tablet PO 81 mg QAM STEPHEN Administration Benzocaine 1 lozenge 05/23/23 22:23 Benzocaine/Menthol (*Bkc) 18 Ea Lozenge PO PRN PRN Sore Throat B
--- NOTE | 2023-05-25 12:19 | PM.IMPN ---
Progress Note: A&P Assessment and Plan (1) Influenza A: Code(s): J10.1 - Influenza due to other identified influenza virus with other respiratory manifestations Status: Acute Assessment and Plan: - symptom onset: approx 05/16 - tested positive on: 05/23/23 - started on Tamiflu on 05/23 - continue supportive measures Tylenol p.r.n. Zofran p.r.n. Tessalon Perles p.r.n. IV hydration - no evidence of pneumonia on CXR No SOB. Patient denied cough, frequent sneezing observed on assessment 05/25: Denies complaints. No pain or body aches. Afebrile and without respiratory distress. (2) CHINEDU (acute kidney injury): Code(s): N17.9 - Acute kidney failure, unspecified Status: Acute Assessment and Plan: - Renal Function 05/17/23 -> 05/23/23 creatinine 1.7 -> 2.4 BUN 38 -> 49 ECC 29 -> 19 GFR 39 -> 26 - Nephrology consulted, awaiting recs. - IV Fluids- NS @ 100 - monitor renal function - monitor I&Os 05/24- creatinine- 2.20 BUN- 45 ECC- 20 GFR - 29 05/25: Nephrology involved- Test pending - IV Fluids- NS @ 75 creatinine- 2.0 BUN- 68 ECC- 20 GFR - 32 Renal US- impression notes medical renal disease. (3) Elevated troponin: Code(s): R79.89 - Other specified abnormal findings of blood chemistry Status: Acute Assessment and Plan: - Troponin: 0.046 -> 0.050 - EKG, initial: sinus rhythm with first-degree AV block, marked left axis deviation, LBB, no previous EKG for comparison. - no active chest pain - suspect demand ischemia source of troponin 05/24 Troponin continued to rend down -> 0.038 BNP elevated at 939- suspect demand ischemia Echo ordered 05/25: Patient refused echo. Continues to have no active chest pain. BP 145/75. Continue to monitor vitals (4) Elevated lactic acid level: Code(s): R79.89 - Other specified abnormal findings of blood chemistry Status: Acute Assessment and Plan: - does not meet SIRS criteria, no blood cultures ordered - lactic acid 3.0 - possible UTI, Flu A+ - given 2L bolus of NS, started on Ceftriaxone and Tamiflu - repeat lactic - suspect elevation secondary to current CHINEDU 05/24- Lactic acid trended down to 1.9 (05/23) 05/25: NS at 75. Urine culture negative. (5) Hypercalcemia: Code(s): E83.52 - Hypercalcemia Status: Acute Assessment and Plan: - Ca 13.5, previously 12.4 on 05/17 - repeat post fluid resuscitation - PTH ordered, TSH within normal limits - add vitamin-D 25 hydroxy 05/24 PTH elevated 280.2 Ca- 12.2 ionized Ca ordered- Pending 05/25: Ca 11.5- Trending down. ionized Ca ordered- Pending. Repeat PTH ordered (6) Acute UTI: Code(s): N39.0 - Urinary tract infection, site not specified Status: Acute Assessment and Plan: - UA: 1+ protein, trace ketones, 3+ blood, trace leuk esterase, greater than 100 rbc's, 6-10 wbc's, occasional epithelial cells - UC pending - started on cephalexin, exchanged to ceftriaxone IVPB on 05/23 Patient continues to deny urinary symptoms 05/25: Patient continues to deny urinary symptoms. Urine culture negative. 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 Initially follows instructions, however, quickly refuses to respond. Per nursing staff this is his behavior with them. Per ER documentation he can be uncooperative and combative Plan Flu A+, CHINEDU, and elevated calcium. awaiting nephrology consultation. Here for IV fluids, started on ceftriaxone, and PTH ordered. Diet: regular GI Prophylaxis: Not currently indicated DVT Prophylaxis: SCDs, continue home Eliquis Lines: pIV Code Status: Full Code Time Spent With Patient Time with patient: 15 - 25 minutes Subjective Date/time seen: 05/25/23 100
[2023-05-25] MEDS: OSELTAMIVIR PHOSPHATE 30 MG CAPSULE PO (12:22)
[2023-05-26] VITALS (10 sets, daily range): BP systolic 124–153; BP diastolic 63–75; PULSE 57–73; RESP 18; TEMP 36.6–37.1; O2SAT 95–98
[2023-05-26] MEDS: SODIUM CHLORIDE 0.9% IV 1,000 ML 75 ML IV CONT ×2 (02:06→21:30)
[2023-05-26 06:45] LABS: Basophils Absolute Auto 0.1 K/mm3 (0.0-0.1); Basophils Percent Auto 0.7 % (0.2-1.2); Eosinophils Absolute Auto 0.2 K/mm3 (0-0.3); Eosinophils Percent Auto 2.2 % (0-4.4); Hematocrit 35.6 % (42.0-52.0); Hemoglobin 11.7 g/dL (14.0-18.0); Immature Granulocyte Absolute 0.03 K/mm3 (0.00-0.031); Immature Granulocyte Percent A 0.4 % (0-0.5); Lymphocytes Absolute Auto 1.84 K/mm3 (0.9-3.2); Lymphocytes Percent Auto 25.7 % (18.3-44.2); Mean Corpuscular HGB Conc 32.9 g/dl (32-36); Mean Corpuscular Hemoglobin 31.5 pg (26-34); Mean Platelet Volume 10.7 fl (7.4-10.4); Monocytes Absolute Auto 0.5 K/mm3 (0.1-0.6); Monocytes Percent Auto 6.6 % (2.6-8.5); Neutrophils Absolute Auto 4.6 K/mm3 (1.3-6.7); Neutrophils Percent Auto 64.4 % (45.5-73.1); Platelet Count Result 166 k/mm3 (150-375); Red Blood Count 3.71 M/mm3 (4.6-6.20); Red Cell Distribution Width 13.4 % (11.5-14.5); White Blood Count 7.2 K/mm3 (4.5-10.0)
[2023-05-26 06:56] LABS: Alanine Aminotransferase 12 U/L (6-50); Albumin Level 3.2 g/dL (3.5-5.1); Alkaline Phosphatase 79 U/L (38-126); Anion Gap 5 mmol/L (8-16); Aspartate Amino Transferase 17 U/L (17-59); Bilirubin,Total 0.5 mg/dL (0.2-1.3); Blood Urea Nitrogen 34 mg/dL (9-20); Calcium 11.6 mg/dL (8.4-10.2); Carbon Dioxide 19 mmol/L (22-30); Chloride 118 mmol/L (98-107); Estimated CRCL calculation 24 ml/min; Estimated Glomerular Filt Rate 34; Glucose 102 mg/dL (65-110); Potassium 3.4 mmol/L (3.4-5.0); Sodium 142 mmol/L (137-145)
[2023-05-26 10:15] LABS: Parathyroid Intact 271.6 pg/mL (7.5-53.5)
[2023-05-26] MEDS: MIRTAZAPINE 15 MG TABLET PO (10:24)
[2023-05-26] MEDS: QUEtiapine FUMARATE 25 MG TABLET PO (10:25)
[2023-05-26] MEDS: ASPIRIN 81 MG ENTERIC TABLET PO (10:25)
[2023-05-26] MEDS: DONEPEZIL HCL 5 MG TABLET PO (10:25)
[2023-05-26] MEDS: HALOPERIDOL 0.5 MG TABLET 1.5 MG PO (10:25)
[2023-05-26] MEDS: APIXABAN 5 MG TABLET PO ×2 (10:25→21:25)
[2023-05-26] MEDS: amLODIPine BESYLATE 5 MG TABLET 10 MG PO (10:25)
[2023-05-26] MEDS: MEMANTINE 5 MG TABLET PO ×2 (10:25→21:25)
[2023-05-26] MEDS: CALCITONIN SALMON INJ 400 UNITS/2 ML VIAL 200 UNITS SUB-Q ×2 (10:26→21:25)
[2023-05-26] MEDS: SENNA/DOCUSATE SODIUM TABLET 1 TAB PO ×2 (10:26→17:47)
[2023-05-26] MEDS: BENZONATATE 100 MG CAPSULE PO ×3 (10:26→17:46)
[2023-05-26] MEDS: MEGESTROL ACETATE (*CHEMO) ORAL SUSP 40 MG/ML SYR 800 MG PO (10:39)
[2023-05-26] MEDS: MAGNESIUM HYDROXIDE SUSP 30 ML UDC PO (10:39)
[2023-05-26 12:03] LABS: Kappa\\Lambda Light Chains 2.11 (0.26-1.65); Lambda Light Chain 34.3 mg/L (5.7-26.3)
--- NOTE | 2023-05-26 12:05 | P.PNNP_ITS ---
Progress Note: A&P Assessment and Plan (1) CHINEDU (acute kidney injury): Code(s): N17.9 - Acute kidney failure, unspecified Status: Acute Assessment and Plan: * improvement noted since admission * continue trial of IVFs * evaluation to date noted: * renal ultrasound c/w CKD/medical renal disease * urine studies pending * CPK normal * UA noted * follow repeat labs and UOP (2) CKD (chronic kidney disease): Code(s): N18.9 - Chronic kidney disease, unspecified Status: Chronic Assessment and Plan: * baseline creatinine/GFR not known * creatinine 1.7mg/dl noted earlier this month (on ER visit) * awaiting records from nursing facility (none available as of yet) * suspect related to HTN, vascular disease, and age-related change (3) Influenza A: Code(s): J10.1 - Influenza due to other identified influenza virus with other respiratory manifestations Status: Acute Assessment and Plan: * positive testing in ER (on 05/23/23) * on Tamiflu * continue supportive measures * follow respirator status (4) Hypercalcemia: Code(s): E83.52 - Hypercalcemia Status: Acute Assessment and Plan: * wlow improvement noted * calcium 13.5 on admission (previously 12.4 on 05/17/23 ER visit) * related to just volume depletion? * improvement with just IVFs would argue at least a component of this... * elevated PTH noted with adequate Vitamin D * primary hyperparathyroidism? * given histroy of CKD, cannot discount secondary hyperparathyroidism * hold ergocalciferol * follow-up on SPEP and UPEP * consider bone scan and/espana NM parathyroid imaging (but suspect he may refuse as he did with Echo) * dose with calcitonin today since calcium has not changed in the last 24 hours * follow trend of repeat calcium levels (5) Hypertension: Code(s): I10 - Essential (primary) hypertension Status: Chronic Assessment and Plan: * resonable control at this time * follow trend oif hemodynamics Not opposed to discharge from renal perspective when otherwise medically stable -- likely needs Endocrinology referral with regard to hypercalcemia and Nephr ology follow-up with regard to his underlying CKD but unclear the lobsterman benefits given his long-standing cognitive impairments and associated dementia. Will continue to follow Subjective Date/time seen: 05/26/23 12:05 Interval history: Follow-up for acute kidney injury/acute renal failure on chronic kidney disease and hypercalcemia. Mentation seems better but still with intermittent confusion; calcium unchanged in the last 24 hours but renal function a tad better; no apparent distress noted; no issues/events overnight or earlier today. Exam Narrative: General: frail and elderly male in NAD Heart: normal S1 and S2; no rub Lungs: clear to auscultation Abdomen: soft, nontender, nondistended, positive bowel sounds Extremities: no cyanosis or clubbing; no edema Skin: warm and intact Objective Data Vital Signs Vital Signs: Vital Signs Temp Pulse Resp BP Pulse Ox O2 Del Method 05/26/23 12:00 98.0 F 70 18 124/72 98 05/26/23 08:00 Room Air 05/26/23 08:13 96 Room Air 05/26/23 04:00 57 L 05/26/23 05:21 97.8 F 62 18 129/63 95 05/26/23 00:00 59 L 05/25/23 20:00 61 02/0
--- NOTE | 2023-05-26 12:05 | PM.PNNEP ---
Progress Note: A&P Assessment and Plan (1) CHINEDU (acute kidney injury): Code(s): N17.9 - Acute kidney failure, unspecified Status: Acute Assessment and Plan: improvement noted since admission continue trial of IVFs evaluation to date noted: renal ultrasound c/w CKD/medical renal disease urine studies pending CPK normal UA noted follow repeat labs and UOP (2) CKD (chronic kidney disease): Code(s): N18.9 - Chronic kidney disease, unspecified Status: Chronic Assessment and Plan: baseline creatinine/GFR not known creatinine 1.7mg/dl noted earlier this month (on ER visit) awaiting records from nursing facility (none available as of yet) suspect related to HTN, vascular disease, and age-related change (3) Influenza A: Code(s): J10.1 - Influenza due to other identified influenza virus with other respiratory manifestations Status: Acute Assessment and Plan: positive testing in ER (on 05/23/23) on Tamiflu continue supportive measures follow respirator status (4) Hypercalcemia: Code(s): E83.52 - Hypercalcemia Status: Acute Assessment and Plan: wlow improvement noted calcium 13.5 on admission (previously 12.4 on 05/17/23 ER visit) related to just volume depletion? improvement with just IVFs would argue at least a component of this... elevated PTH noted with adequate Vitamin D primary hyperparathyroidism? given histroy of CKD, cannot discount secondary hyperparathyroidism hold ergocalciferol follow-up on SPEP and UPEP consider bone scan and/espana NM parathyroid imaging (but suspect he may refuse as he did with Echo) dose with calcitonin today since calcium has not changed in the last 24 hours follow trend of repeat calcium levels (5) Hypertension: Code(s): I10 - Essential (primary) hypertension Status: Chronic Assessment and Plan: resonable control at this time follow trend oif hemodynamics Not opposed to discharge from renal perspective when otherwise medically stable -- likely needs Endocrinology referral with regard to hypercalcemia and Nephrology follow-up with regard to his underlying CKD but unclear the [facility] benefits given his long-standing cognitive impairments and associated dementia. Will continue to follow Subjective Date/time seen: 05/26/23 12:05 Interval history: Follow-up for acute kidney injury/acute renal failure on chronic kidney disease and hypercalcemia. Mentation seems better but still with intermittent confusion; calcium unchanged in the last 24 hours but renal function a tad better; no apparent distress noted; no issues/events overnight or earlier today. Exam Narrative: General: frail and elderly male in NAD Heart: normal S1 and S2; no rub Lungs: clear to auscultation Abdomen: soft, nontender, nondistended, positive bowel sounds Extremities: no cyanosis or clubbing; no edema Skin: warm and intact Objective Data Vital Signs Vital Signs: Vital Signs Temp Pulse Resp BP Pulse Ox O2 Del Method 05/26/23 12:00 98.0 F 70 18 124/72 98 05/26/23 08:00 Room Air 05/26/23 08:13 96 Room Air 05/26/23 04:00 57 L 05/26/23 05:21 97.8 F 62 18 129/63 95 05/26/23 00:00 59 L 05/25/23 20:00 61 05/25/23 20:15 98.9 F 58 L 16 137/79 97 Intake/Output Intake/Output: Intake & Output 05/23/23 05/24/23 05/25/23 05/26/23 23:59 23:59 23:59 23:59 Intake Total 0 3660 2582 1680 Output Total 450 400 Balance 0 3660 2132 1280 Meds/Results Medications: Active Medications Generic Name Dose Route Start Last Admin Trade Name Freq PRN Reason Stop Dose Admin Acetaminophen 500 mg 05/23/23 22:23 Acetaminophen 500 Mg Tablet PO Q4H PRN Mild Pain (1-3) or Fever Amlodipine Besylate 10 mg 05/24/23 09:00 05/26/23 10:25 Amlodipine Besylate 5 Mg Tablet PO 10 mg DAILY [facility] Administra
[2023-05-26] MEDS: OSELTAMIVIR PHOSPHATE 30 MG CAPSULE PO (13:08)
[2023-05-26 16:19] LABS: Total Protein Urine Random 24 mg/dL; Ur Ttl Prot Creatinine Ratio 0.55 mg/mg (0-0.20); Urea Random Urine 446 MG/DL
[2023-05-26 16:20] LABS: Sodium Urine Random 132 meq/L
[2023-05-26 16:43] LABS: Eosinophil Urine None Seen % (None Seen)
[2023-05-26 16:44] LABS: Urine Eos QC 2nd Tech Confirmed
--- NOTE | 2023-05-26 17:51 | PM.IMPN ---
Progress Note: A&P Assessment and Plan (1) Influenza A: Code(s): J10.1 - Influenza due to other identified influenza virus with other respiratory manifestations Status: Acute Assessment and Plan: - symptom onset: approx 05/16 - tested positive on: 05/23/23 - started on Tamiflu on 05/23 - continue supportive measures Tylenol p.r.n. Zofran p.r.n. Tessalon Perles p.r.n. IV hydration - no evidence of pneumonia on CXR No SOB. Patient denied cough, frequent sneezing observed on assessment 05/25: Denies complaints. No pain or body aches. Afebrile and without respiratory distress. 05/26: Continue supportive measures - Monitor for respiratory distress. - Denies shortness of breathe at time of assessment (2) CHINEDU (acute kidney injury): Code(s): N17.9 - Acute kidney failure, unspecified Status: Acute Assessment and Plan: - Renal Function 05/17/23 -> 05/23/23 creatinine 1.7 -> 2.4 BUN 38 -> 49 ECC 29 -> 19 GFR 39 -> 26 - Nephrology consulted, awaiting recs. - IV Fluids- NS @ 100 - monitor renal function - monitor I&Os 05/24- creatinine- 2.20 BUN- 45 ECC- 20 GFR - 29 05/25: Nephrology involved- Test pending - IV Fluids- NS @ 75 creatinine- 2.0 BUN- 38 ECC- 22 GFR - 32 Renal US- impression notes medical renal disease. 05/26: Nephrology continues to follow. - IV Fluids- NS @ 75 creatinine- 1.9 BUN- 34 ECC- 24 GFR - 34 renal ultrasound c/w CKD/medical renal disease urine studies pending follow repeat labs (3) Elevated troponin: Code(s): R79.89 - Other specified abnormal findings of blood chemistry Status: Acute Assessment and Plan: - Troponin: 0.046 -> 0.050 - EKG, initial: sinus rhythm with first-degree AV block, marked left axis deviation, LBB, no previous EKG for comparison. - no active chest pain - suspect demand ischemia source of troponin 05/24 Troponin continued to rend down -> 0.038 BNP elevated at 939- suspect demand ischemia Echo ordered 05/25: Patient refused echo. Continues to have no active chest pain. BP 145/75. Continue to monitor vitals 05/26: Continues to refuse echo. Denies chest pain. BP 129/63 this am. Continue to monitor (4) Elevated lactic acid level: Code(s): R79.89 - Other specified abnormal findings of blood chemistry Status: Acute Assessment and Plan: - does not meet SIRS criteria, no blood cultures ordered - lactic acid 3.0 - possible UTI, Flu A+ - given 2L bolus of NS, started on Ceftriaxone and Tamiflu - repeat lactic - suspect elevation secondary to current CHINEDU 05/24- Lactic acid trended down to 1.9 (05/23) 05/25: NS at 75. Urine culture negative. (5) Hypercalcemia: Code(s): E83.52 - Hypercalcemia Status: Acute Assessment and Plan: - Ca 13.5, previously 12.4 on 05/17 - repeat post fluid resuscitation - PTH ordered, TSH within normal limits - add vitamin-D 25 hydroxy 05/24 PTH elevated 280.2 Ca- 12.2 ionized Ca ordered- Pending 05/25: Ca 11.5- Trending down. ionized Ca ordered- Pending. Repeat PTH ordered 05/26: Ca 11.6- PTH 271.6. ionized Ca ordered- Pending (6) Acute UTI: Code(s): N39.0 - Urinary tract infection, site not specified Status: Acute Assessment and Plan: - UA: 1+ protein, trace ketones, 3+ blood, trace leuk esterase, greater than 100 rbc's, 6-10 wbc's, occasional epithelial cells - UC pending - started on cephalexin, exchanged to ceftriaxone IVPB on 05/23 Patient continues to deny urinary symptoms 05/25: Patient continues to deny urinary symptoms. Urine culture negative. Will DC Abx Rocephin 05/26: Incontinent at baseline. 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 Initially follows instructions, ashwin
--- NOTE | 2023-05-26 19:44 | PC.NURSE ---
On 05/26/23, the student, Anders Feliz, provided care and completed [facility] documentation on this patient. I have reviewed the student's documentation and agree with the findings.
[2023-05-26 19:47] LABS: Ionized Calcium 6.8 mg/dL (4.7-5.5)
[2023-05-27] VITALS (7 sets, daily range): BP systolic 125–144; BP diastolic 75–85; PULSE 65–85; RESP 16; TEMP 36.6; O2SAT 95–96
[2023-05-27 06:11] LABS: Basophils Percent Auto 0.5 % (0.2-1.2); Eosinophils Absolute Auto 0.2 K/mm3 (0-0.3); Eosinophils Percent Auto 2.6 % (0-4.4); Hematocrit 34.5 % (42.0-52.0); Hemoglobin 11.3 g/dL (14.0-18.0); Immature Granulocyte Absolute 0.05 K/mm3 (0.00-0.031); Immature Granulocyte Percent A 0.7 % (0-0.5); Lymphocytes Absolute Auto 1.71 K/mm3 (0.9-3.2); Lymphocytes Percent Auto 23.4 % (18.3-44.2); Mean Corpuscular HGB Conc 32.8 g/dl (32-36); Mean Corpuscular Hemoglobin 31.3 pg (26-34); Mean Corpuscular Volume 95.6 fl (80-100); Mean Platelet Volume 10.7 fl (7.4-10.4); Monocytes Absolute Auto 0.4 K/mm3 (0.1-0.6); Neutrophils Absolute Auto 4.9 K/mm3 (1.3-6.7); Neutrophils Percent Auto 66.8 % (45.5-73.1); Platelet Count Result 160 k/mm3 (150-375); Red Blood Count 3.61 M/mm3 (4.6-6.20); Red Cell Distribution Width 13.4 % (11.5-14.5); White Blood Count 7.3 K/mm3 (4.5-10.0)
[2023-05-27 06:25] LABS: Alanine Aminotransferase 12 U/L (6-50); Albumin Level 2.8 g/dL (3.5-5.1); Alkaline Phosphatase 75 U/L (38-126); Anion Gap 6 mmol/L (8-16); Aspartate Amino Transferase 18 U/L (17-59); Bilirubin,Total 0.5 mg/dL (0.2-1.3); Blood Urea Nitrogen 26 mg/dL (9-20); Calcium 10.2 mg/dL (8.4-10.2); Carbon Dioxide 18 mmol/L (22-30); Chloride 118 mmol/L (98-107); Estimated CRCL calculation 26 ml/min; Estimated Glomerular Filt Rate 39; Glucose 98 mg/dL (65-110); Potassium 3.6 mmol/L (3.4-5.0); Sodium 142 mmol/L (137-145)
[2023-05-27] MEDS: CALCITONIN SALMON INJ 400 UNITS/2 ML VIAL 200 UNITS SUB-Q (09:11)
[2023-05-27] MEDS: MEGESTROL ACETATE (*CHEMO) ORAL SUSP 40 MG/ML SYR 800 MG PO (09:12)
[2023-05-27] MEDS: ASPIRIN 81 MG ENTERIC TABLET PO (09:12)
[2023-05-27] MEDS: QUEtiapine FUMARATE 25 MG TABLET PO (09:12)
[2023-05-27] MEDS: APIXABAN 5 MG TABLET PO (09:12)
[2023-05-27] MEDS: MAGNESIUM HYDROXIDE SUSP 30 ML UDC PO (09:12)
[2023-05-27] MEDS: HALOPERIDOL 0.5 MG TABLET 1.5 MG PO (09:13)
[2023-05-27] MEDS: BENZONATATE 100 MG CAPSULE PO ×2 (09:13→12:18)
[2023-05-27] MEDS: MEMANTINE 5 MG TABLET PO (09:13)
[2023-05-27] MEDS: DONEPEZIL HCL 5 MG TABLET PO (09:13)
[2023-05-27] MEDS: MIRTAZAPINE 15 MG TABLET PO (09:13)
[2023-05-27] MEDS: SENNA/DOCUSATE SODIUM TABLET 1 TAB PO (09:13)
[2023-05-27] MEDS: amLODIPine BESYLATE 5 MG TABLET 10 MG PO (09:13)
--- NOTE | 2023-05-27 11:54 | PM.PNNEP ---
Progress Note: A&P Assessment and Plan (1) CHINEDU (acute kidney injury): Code(s): N17.9 - Acute kidney failure, unspecified Status: Acute Assessment and Plan: slow improvement noted since admission on trial of IVFs evaluation to date noted: renal ultrasound c/w CKD/medical renal disease urine eosinophils negative urine electrolytes non-prerenal (by FeNA and FeUrea) mild proteinuria CPK normal UA noted follow repeat labs and UOP (2) CKD (chronic kidney disease): Code(s): N18.9 - Chronic kidney disease, unspecified Status: Chronic Assessment and Plan: baseline creatinine/GFR not known creatinine 1.7mg/dl noted earlier this month (on ER visit) awaiting records from nursing facility (none available as of yet) suspect related to HTN, vascular disease, and age-related change (3) Influenza A: Code(s): J10.1 - Influenza due to other identified influenza virus with other respiratory manifestations Status: Acute Assessment and Plan: positive testing in ER (on 05/23/23) on Tamiflu continue supportive measures follow respirator status (4) Hypercalcemia: Code(s): E83.52 - Hypercalcemia Status: Acute Assessment and Plan: slow improvement noted calcium 13.5 on admission (previously 12.4 on 05/17/23 ER visit) related to just volume depletion? improvement with just IVFs would argue at least a component of this... elevated PTH noted with adequate Vitamin D primary hyperparathyroidism? given histroy of CKD, cannot discount secondary hyperparathyroidism hold ergocalciferol SPEP with reveals a possible restricted band (M-Jacinto) migrating in the beta-2 globin region, which is too small to quantitate and UPEP pending check serum/urine immunofixation consider bone scan and/or NM parathyroid imaging (but suspect he may refuse as he did with Echo) s/p 3 doses of calcitonin follow trend of repeat calcium levels (5) Hypertension: Code(s): I10 - Essential (primary) hypertension Status: Chronic Assessment and Plan: resonable control at this time follow trend oif hemodynamics Not opposed to discharge from renal perspective when otherwise medically stable -- likely needs Endocrinology referral with regard to hypercalcemia (particularly if recurrs) and Nephrology follow-up with regard to his underlying suspected CKD but unclear the [facility] benefits given his long-standing cognitive impairments and associated dementia. Will continue to follow Subjective Date/time seen: 05/27/23 11:54 Interval history: Follow-up for acute kidney injury/acute renal failure on chronic kidney disease and hypercalcemia. S/P calcitonin with normalization of calcium levels; renal function better as well with ongoing interventions; mentation seems the same -- answers a few questions and then quickly stops responding/verbalizing; no other issues/events overnight or earlier this morning. Exam Narrative: General: frail and elderly male in NAD Heart: normal S1 and S2; no rub Lungs: clear to auscultation Abdomen: soft, nontender, nondistended, positive bowel sounds Extremities: no cyanosis or clubbing; no edema Skin: no rash or nodules Objective Data Vital Signs Vital Signs: Vital Signs Temp Pulse Resp BP Pulse Ox O2 Del Method 05/27/23 08:00 Room Air 05/27/23 08:00 70 05/27/23 05:54 97.9 F 75 16 144/75 H 96 05/27/23 04:00 71 05/27/23 00:00 85 05/26/23 20:00 70 18 97 Room Air 05/26/23 20:00 65 05/26/23 20:47 98.7 F 70 18 153/75 H 97 05/26/23 16:00 65 Intake/Output Intake/Output: Intake & Output 05/24/23 05/25/23 05/26/23 05/27/23 23:59 23:59 23:59 23:59 Intake Total 3660 2582 2900 1000 Output Total 450 400 Balance 3660 2132 2500 1000 Meds/Results Medications: Active Medications Generic Name Dose Route Start Last Adm
--- NOTE | 2023-05-27 11:54 | P.PNNP_ITS ---
Progress Note: A&P Assessment and Plan (1) CHINEDU (acute kidney injury): Code(s): N17.9 - Acute kidney failure, unspecified Status: Acute Assessment and Plan: * slow improvement noted since admission * on trial of IVFs * evaluation to date noted: * renal ultrasound c/w CKD/medical renal disease * urine eosinophils negative * urine electrolytes non-prerenal (by FeNA and FeUrea) * mild proteinuria * CPK normal * UA noted * follow repeat labs and UOP (2) CKD (chronic kidney disease): Code(s): N18.9 - Chronic kidney disease, unspecified Status: Chronic Assessment and Plan: * baseline creatinine/GFR not known * creatinine 1.7mg/dl noted earlier this month (on ER visit) * awaiting records from nursing facility (none available as of yet) * suspect related to HTN, vascular disease, and age-related change (3) Influenza A: Code(s): J10.1 - Influenza due to other identified influenza virus with other respiratory manifestations Status: Acute Assessment and Plan: * positive testing in ER (on 05/23/23) * on Tamiflu * continue supportive measures * follow respirator status (4) Hypercalcemia: Code(s): E83.52 - Hypercalcemia Status: Acute Assessment and Plan: * slow improvement noted * calcium 13.5 on admission (previously 12.4 on 05/17/23 ER visit) * related to just volume depletion? * improvement with just IVFs would argue at least a component of this... * elevated PTH noted with adequate Vitamin D * primary hyperparathyroidism? * given histroy of CKD, cannot discount secondary hyperparathyroidism * hold ergocalciferol * SPEP with reveals a possible restricted band (M-Jacinto) migrating in the beta- 2 globin region, which is too small to quantitate and UPEP pending * check serum/urine immunofixation * consider bone scan and/or NM parathyroid imaging (but suspect he may refuse as he did with Echo) * s/p 3 doses of calcitonin * follow trend of repeat calcium levels (5) Hypertension: Code(s): I10 - Essential (primary) hypertension Status: Chronic Assessment and Plan: * resonable control at this time * follow trend oif hemodynamics Not opposed to discharge from renal perspective when otherwise medically stable -- likely needs Endocrinology referral with regard to hypercalcemia (particularly if recurrs) and Nephrology follow-up with regard to his underlying suspected CKD but unclear the skilled nursing benefits given his long-standing cognitive impairments and associated dementia. Will continue to follow Subjective Date/time seen: 05/27/23 11:54 Interval history: Follow-up for acute kidney injury/acute renal failure on chronic kidney disease and hypercalcemia. S/P calcitonin with normalization of calcium levels; renal function better as well with ongoing interventions; mentation seems the same -- answers a few questions and then quickly stops responding/verbalizing; no other issues/events overnight or earlier this morning. Exam Narrative: General: frail and elderly male in NAD Heart: normal S1 and S2; no rub Lungs: clear to auscultation Abdomen: soft, nontender, nondistended, positive bowel sounds Extremities: no cyanosis or clubbing; no edema Skin: no rash or nodules Objective Data Vital Signs Vital Signs: Vital Signs Temp Pulse Resp BP Pulse Ox O2 Del Method 0
[2023-05-27] MEDS: SODIUM CHLORIDE 0.9% IV 1,000 ML 75 ML IV CONT (12:14)
[2023-05-27] MEDS: OSELTAMIVIR PHOSPHATE 30 MG CAPSULE PO (12:18)
--- NOTE | 2023-05-27 13:01 | P.DS_ITS ---
DS: Admitting Diagnosis Discharge Date 05/27/23 Admitting Diagnosis CHINEDU, FLU A, Hypercalcemia, Elevated Troponin, Elevated acid level DS: Discharge Diagnosis Discharge Diagnosis (1) Influenza A: Code(s): J10.1 - Influenza due to other identified influenza virus with other respiratory manifestations Status: Acute Assessment and Plan: - symptom onset: approx 05/16 - tested positive on: 05/23/23 - started on Tamiflu on 05/23 - continue supportive measures * Tylenol p.r.n. * Zofran p.r.n. * Tessalon Perles p.r.n. * IV hydration - no evidence of pneumonia on CXR No SOB. Patient denied cough, frequent sneezing observed on assessment 05/25: Denies complaints. No pain or body aches. Afebrile and without respiratory distress. 05/26: Continue supportive measures - Monitor for respiratory distress. - Denies shortness of breathe at time of assessment 05/27: Denies symptoms. No respiratory distress noted. Afebrile. Tamiflu order in place to continue to completion. Continue supportive measures as needed in SNF. (2) CHINEDU (acute kidney injury): Code(s): N17.9 - Acute kidney failure, unspecified Status: Acute Assessment and Plan: - Renal Function 05/17/23 -> 05/23/23 * creatinine 1.7 -> 2.4 * BUN 38 -> 49 * ECC 29 -> 19 * GFR 39 -> 26 - Nephrology consulted, awaiting recs. - IV Fluids- NS @ 100 - monitor renal function - monitor I&Os * 05/24- * creatinine- 2.20 * BUN- 45 * ECC- 20 * GFR - 29 05/25: Nephrology involved- Test pending - IV Fluids- NS @ 75 * creatinine- 2.0 * BUN- 38 * ECC- 22 * GFR - 32 * Renal US- impression notes medical renal disease. 05/26: Nephrology continues to follow. - IV Fluids- NS @ 75 * creatinine- 1.9 * BUN- 34 * ECC- 24 * GFR - 34 * renal ultrasound c/w CKD/medical renal disease * urine studies pending * follow repeat labs 05/27: Nephrology consulted and express that patient is ok to discharge at this time. Expressed patient would benefit from outpatient Endocrinology referral for with regard to hypercalcemia- of which is trending into normal levels at this time. Nephrology would like for patient to follow up with their service in regard to his underlying CKD. * Patient labs have trend towards baseline- Will discharge with F/U labs to be sent to Nephrology and patient's PCP * creatinine- 1.7 * BUN- 26 * ECC- 26 * GFR - 39 * Urine studies pending (3) Elevated troponin: Code(s): R79.89 - Other specified abnormal findings of blood chemistry Status: Acute Assessment and Plan: - Troponin: 0.046 -> 0.050 - EKG, initial: sinus rhythm with first-degree AV block, marked left axis deviation, LBB, no previous EKG for comparison. - no active chest pain - suspect demand ischemia source of troponin * 05/24 Troponin continued to rend down -> 0.038 * BNP elevated at 939- suspect demand ischemia * Echo ordered 05/25: Patient refused echo. Continues to have no active chest pain. BP 145/75. Continue to monitor vitals 05/26: Continues to refuse echo. Denies chest pain. BP 129/63 this am. Continue to monitor 05/27: Patient remains without chest pain, pain, or shortness of breath. (4) Elevated lactic acid level: Code(s): R79.89 - Other specified abnormal findings of blood chemistry Status: Acute Assessment and Plan: - does not meet SIRS criteria, no blood cultures ordered - lactic acid 3.0 - possible UTI, Flu A+ - given 2L bolus of NS, started on Ceftriaxone and Tamiflu
--- NOTE | 2023-05-27 13:01 | PM.DS ---
DS: Admitting Diagnosis Discharge Date 05/27/23 Admitting Diagnosis CHINEDU, FLU A, Hypercalcemia, Elevated Troponin, Elevated acid level DS: Discharge Diagnosis Discharge Diagnosis (1) Influenza A: Code(s): J10.1 - Influenza due to other identified influenza virus with other respiratory manifestations Status: Acute Assessment and Plan: - symptom onset: approx 05/16 - tested positive on: 05/23/23 - started on Tamiflu on 05/23 - continue supportive measures Tylenol p.r.n. Zofran p.r.n. Tessalon Perles p.r.n. IV hydration - no evidence of pneumonia on CXR No SOB. Patient denied cough, frequent sneezing observed on assessment 05/25: Denies complaints. No pain or body aches. Afebrile and without respiratory distress. 05/26: Continue supportive measures - Monitor for respiratory distress. - Denies shortness of breathe at time of assessment 05/27: Denies symptoms. No respiratory distress noted. Afebrile. Tamiflu order in place to continue to completion. Continue supportive measures as needed in SNF. (2) CHINEDU (acute kidney injury): Code(s): N17.9 - Acute kidney failure, unspecified Status: Acute Assessment and Plan: - Renal Function 05/17/23 -> 05/23/23 creatinine 1.7 -> 2.4 BUN 38 -> 49 ECC 29 -> 19 GFR 39 -> 26 - Nephrology consulted, awaiting recs. - IV Fluids- NS @ 100 - monitor renal function - monitor I&Os 05/24- creatinine- 2.20 BUN- 45 ECC- 20 GFR - 29 05/25: Nephrology involved- Test pending - IV Fluids- NS @ 75 creatinine- 2.0 BUN- 38 ECC- 22 GFR - 32 Renal US- impression notes medical renal disease. 05/26: Nephrology continues to follow. - IV Fluids- NS @ 75 creatinine- 1.9 BUN- 34 ECC- 24 GFR - 34 renal ultrasound c/w CKD/medical renal disease urine studies pending follow repeat labs 05/27: Nephrology consulted and express that patient is ok to discharge at this time. Expressed patient would benefit from outpatient Endocrinology referral for with regard to hypercalcemia- of which is trending into normal levels at this time. Nephrology would like for patient to follow up with their service in regard to his underlying CKD. Patient labs have trend towards baseline- Will discharge with F/U labs to be sent to Nephrology and patient's PCP creatinine- 1.7 BUN- 26 ECC- 26 GFR - 39 Urine studies pending (3) Elevated troponin: Code(s): R79.89 - Other specified abnormal findings of blood chemistry Status: Acute Assessment and Plan: - Troponin: 0.046 -> 0.050 - EKG, initial: sinus rhythm with first-degree AV block, marked left axis deviation, LBB, no previous EKG for comparison. - no active chest pain - suspect demand ischemia source of troponin 05/24 Troponin continued to rend down -> 0.038 BNP elevated at 939- suspect demand ischemia Echo ordered 05/25: Patient refused echo. Continues to have no active chest pain. BP 145/75. Continue to monitor vitals 05/26: Continues to refuse echo. Denies chest pain. BP 129/63 this am. Continue to monitor 05/27: Patient remains without chest pain, pain, or shortness of breath. (4) Elevated lactic acid level: Code(s): R79.89 - Other specified abnormal findings of blood chemistry Status: Acute Assessment and Plan: - does not meet SIRS criteria, no blood cultures ordered - lactic acid 3.0 - possible UTI, Flu A+ - given 2L bolus of NS, started on Ceftriaxone and Tamiflu - repeat lactic - suspect elevation secondary to current CHINEDU 05/24- Lactic acid trended down to 1.9 (2/7) 05/25: NS at 75. Urine culture negative. 05/27: Lactic acid was 1.9 (2/7), suggestive of dehydration and CHINEDU which has shown improvement. Nephrology ok with patient discharge at this time. Recommend patient F/U in office for CKD. (5) Hypercalcemia: Code(s): E83.52 - Hypercalcemia Status: Acute Assessment and Plan: - Ca 13.5, previously 12.4 on 05/17 - repeat post
[2023-05-27 13:31] LABS: Albumin 2.9 g/dL (3.8-4.8); Alpha 1 Globulin 0.3 g/dL (0.2-0.3); Alpha 2 Globulin 0.9 g/dL (0.5-0.9); Beta 1 Globulin 0.4 g/dL (0.4-0.6); Gamma Globulin 0.7 g/dL (0.8-1.7); Protein, Total 5.7 g/dL (6.1-8.1)
--- NOTE | 2023-05-27 18:21 | PC.NURSE ---
On 05/27/23, the student, Anders Feliz, provided care and completed [facility] documentation on this patient. I have reviewed the student's documentation and agree with the findings.
[2023-05-30 22:55] LABS: Creatinine, Random Urine 45 mg/dL (20-320); Total Protein/Creatinine Ratio 333 mg/g creat (25-148)
== END 2023-05-27 17:28 | DRG 683 ==
LOC: ANHED 15:28 → ANH3MED 16:11
PROVIDERS: Internal Medicine Nephrology; Student in an Organized Health Care Education/Training Program; Admitting Provider Internal Medicine; Emergency Provider Student in an Organized Health Care Education/Training Program; PCP Internal Medicine; Visit Provider Nurse Practitioner Family
DX: N17.9 Acute kidney failure, unspecified (principal); I24.89 Other forms of acute ischemic heart disease; N39.0 Urinary tract infection, site not specified; J10.1 Influenza due to other identified influenza virus with other respiratory manifestations; E83.52 Hypercalcemia; F03.90 Unspecified dementia, unspecified severity, without behavioral disturbance, psychotic disturbance, mood disturbance, and anxiety; E86.0 Dehydration; I12.9 Hypertensive chronic kidney disease with stage 1 through stage 4 chronic kidney disease, or unspecified chronic kidney disease; N18.9 Chronic kidney disease, unspecified; Z86.718 Personal history of other venous thrombosis and embolism; Z86.73 Personal history of transient ischemic attack (TIA), and cerebral infarction without residual deficits
CPT/HCPCS: 36415; 71045; 76775; 80053; 81001; 81050; 82306; 82330; 82550; 82570; 83605; 83690; 83735; 83880; 83883; 83970; 84100; 84155; 84156; 84165; 84166; 84300; 84443; 84484; 84540; 85025; 85027; 85610; 85730; 85999; 87086; 87637; 93005; 96361; 96374; 99285; A9270; G0378; J0630; J0696; J3420; J7030

== ENCOUNTER 2023-06-04 15:15 | Inpatient (IN) | payer MEDICARE, MEDICAID, SELFPAY ==
[2023-06-04] VITALS (9 sets, daily range): BP systolic 109–131; BP diastolic 72–89; PULSE 70–78; RESP 18–20; TEMP 36.3–37; O2SAT 95–100; BMI 22.0
--- NOTE | ~2023-06-04 | XR_ITS ---
EXAMINATION: XR chest 1V portable DATE: 06/04/2023 17:27 INDICATION: Altered mental status TECHNIQUE: frontal view of the chest was obtained. COMPARISON: Chest radiograph dated 05/23/2023 FINDINGS: Unchanged mild linear discoid atelectasis/scarring at the left midlung zone. No new airspace opacitie s, pulmonary edema, pleural effusion or pneumothorax. The cardiomediastinal silhouette is normal. The post surgical clips in the region of the gastroesophageal junction. Old healed left clavicle fractur e deformity. IMPRESSION: 1. No acute cardiopulmonary disease. Reviewed, dictated and finalized at location A. MOMETER OPERATOR
--- NOTE | ~2023-06-04 | CT_ITS ---
EXAMINATION: CT brain wo con DATE: 06/04/2023 16:58 INDICATION: Altered mental status TECHNIQUE: Computed tomography (CT) of the head was performed without intravenous contrast. Sagittal and coronal reconstructions were performed. The mA was adjusted according to patient size. Iterative reconstruction technique was employed. The dose-length product was 681.00 mGy-cm. COMPARISON: 05/16/2023 FINDINGS: No significant change in a fluid collection of CSF attenuation at the anterior aspect of the right mi ddle cranial fossa which appears to exert mild mass effect upon the anterior right temporal lobe without a ssociated encephalomalacia which would be most consistent with an arachnoid cyst. No acute intracrani al hemorrhage, acute infarction or other abnormal extra axial fluid collection. There is mild scattered white matter hypoattenuation consisten t with chronic small vessel ischemic disease. Symmetric prominence of the sulci consistent with moder ate age-appropriate diffuse cerebral volume loss. Ventricles are normal and symmetric. No mass/mass e ffect. The orbits, paranasal sinuses and mastoid air cells are normal. IMPRESSION: 1. No acute intracranial process. 2. Age-related changes including moderate diffuse volume loss and mild scattered white matter hypoatt enuation consistent with chronic small vessel ischemic disease. 3. Arachnoid cyst at the right middle cranial fossa. Reviewed, dictated and finalized at location A. MILL OPERATOR IMPRESSION: 1. No acute intracranial process. 2. Age-related changes including moderate diffuse volume loss and mild scattere d white matter hypoattenuation consistent with chronic small vessel ischemic di sease. 3. Arachnoid cyst at the right middle cranial fossa.
--- NOTE | ~2023-06-04 | CT_ITS ---
EXAMINATION: CT chest abdomen pelvis wo con DATE: 06/04/2023 18:23 INDICATION: sepsis . TECHNIQUE: Computed tomography (CT) of the chest, abdomen, and pelvis was performed with 100 mL Omnip aque-350 intravenous contrast. Automated exposure control and iterative reconstruction technique were employed. The dose-length product was 621.06 mGy-cm. COMPARISON: None FINDINGS: CHEST: Thoracic aorta: 4.2 cm ascending aorta. Mild arch calcification. The left vertebral artery origin hei ghts directly off the arch. Lung parenchyma and airways: Senescent change. Minimal dependent atelectasis/scar. Thoracic inlet, axillae and chest wall: No thyroid or soft tissue mass. No axillary lymphadenopathy. Mediastinum: No mass or lymphadenopathy. Heart and pericardium: Normal heart size. No pericardial effusion. Coronary artery calcifications: Mild. Pleura: No effusion or mass. Thoracic bones: No acute osseous finding in the chest. ABDOMEN/PELVIS: Liver: Normal. Biliary/Gallbladder: Borderline distended, dependent stones and/or sludge, without inflammatory estrada e. No bile duct dilation. Pancreas: No mass or duct dilation. Spleen: Normal. Adrenals:No mass. Kidneys: 16 mm right UPJ stone. Severe right pelviectasis and caliectasis. Simple left upper pole cys t severe right renal atrophy GI tract: Surgical clips at the GE junction. No small or large bowel dilation. Normal appendix. Diver ticulosis without diverticulitis. Mesentery/Peritoneum: No ascites, mass, or free air. Retroperitoneum: No mass Pelvis: 15 mm dependent bladder stone. Mild bladder wall thickening. Prostatomegaly. Soft Tissues: Soft tissues and body wall unremarkable. Abdominopelvic bones: No acute osseous finding in the abdomen/pelvis. IMPRESSION: Cholelithiasis and/or gallbladder sludge, without CT findings of cholecystitis. Correlate with biliar y labs. Presumably long-standing right UPJ obstruction by a 16 mm stone causing severe right pelviectasis and caliectasis as well as severe right renal atrophy. 15 mm urinary bladder stone. Cystitis versus wall thickening from chronic inflammation and/or outlet obstruction. Correlate with u rinalysis. Reviewed, dictated and finalized at location K. HEAD WEIGHER IMPRESSION: Cholelithiasis and/or gallbladder sludge, without CT findings of cholecystitis. Correlate with biliary labs. Presumably long-standing right UPJ obstruction by a 16 mm stone causing severe right pelviectasis and caliectasis as well as severe right renal atrophy. 15 mm urinary bladder stone. Cystitis versus wall thickening from chronic inflammation and/or outlet obstruc tion. Correlate with urinalysis.
--- NOTE | 2023-06-04 15:20 | ECG_ITS ---
Measurements Intervals [place] Rate: 73 P: 65 OK: 200 QRS: -85 QRSD: 130 T: 88 QT: 424 QTc: 470 Interpretive Statements SINUS RHYTHM LEFT AXIS DEVIATION [QRS AXIS < -30] MODERATE INTRAVENTRICULAR CONDUCTION DELAY [105+ ms QRS DURATION, 80+ ms Q/S IN V1/V2, NO Q AND 60+ ms R IN I/aVL/V5/V6] MODERATE ST DEPRESSION [0.05+ mV ST DEPRESSION] ABNORMAL ECG COMPARED TO ECG 05/23/2023 13:26:53 INTRAVENTRICULAR CONDUCTION DELAY NOW PRESENT ST (T WAVE) DEVIATION NOW PRESENT Electronically Signed On 06-04-2023 18:34:53 EMERGENCY MEDICINE by Greg Woodall M.D.
[2023-06-04 16:03] LABS: Basophils Absolute Auto 0.1 K/mm3 (0.0-0.1); Basophils Percent Auto 0.3 % (0.2-1.2); Hemoglobin 14.5 g/dL (14.0-18.0); Immature Granulocyte Absolute 0.16 K/mm3 (0.00-0.031); Immature Granulocyte Percent A 1.1 % (0-0.5); Lymphocytes Absolute Auto 1.38 K/mm3 (0.9-3.2); Lymphocytes Percent Auto 9.2 % (18.3-44.2); Mean Corpuscular HGB Conc 31.5 g/dl (32-36); Mean Corpuscular Hemoglobin 31.8 pg (26-34); Mean Corpuscular Volume 100.9 fl (80-100); Mean Platelet Volume 11.9 fl (7.4-10.4); Monocytes Percent Auto 6.4 % (2.6-8.5); Neutrophils Absolute Auto 12.5 K/mm3 (1.3-6.7); Platelet Count Result 232 k/mm3 (150-375); Red Blood Count 4.56 M/mm3 (4.6-6.20); Red Cell Distribution Width 14.7 % (11.5-14.5); White Blood Count 15.1 K/mm3 (4.5-10.0)
[2023-06-04 16:16] LABS: INR 2.7; Prothrombin Time 30.9 Seconds (11.1-14.7)
[2023-06-04 16:17] LABS: Partial Thromboplastin Time 32.8 SECONDS (22.3-36.8)
[2023-06-04 16:20] LABS: Alanine Aminotransferase 14 U/L (6-50); Albumin Level 3.5 g/dL (3.5-5.1); Alkaline Phosphatase 86 U/L (38-126); Anion Gap 7 mmol/L (8-16); Aspartate Amino Transferase 19 U/L (17-59); Bilirubin,Total 0.7 mg/dL (0.2-1.3); Blood Urea Nitrogen 68 mg/dL (9-20); Carbon Dioxide 21 mmol/L (22-30); Chloride 130 mmol/L (98-107); Estimated Glomerular Filt Rate 20; Glucose 119 mg/dL (65-110); Potassium 3.9 mmol/L (3.4-5.0); Sodium 158 mmol/L (137-145)
[2023-06-04 16:22] LABS: Appearance Urine Clear (Clear); Bacteria Urine None Seen /hpf; Bilirubin Urine Negative (Negative); Blood Urine 3+ (Negative); Color Urine Yellow (Yellow); Glucose Urine UA Negative (Negative); Ketones Urine Trace mg/dL (Negative); Leukocyte Esterase Ur Trace LEU/UL (Negative); Need Manual Microscopic Reviewed; Nitrate Urine Negative (Negative); Protein Urine Negative (Negative); Specific Grav Ur 1.019 (1.001-1.035); Squamous Epithelial Cell Urine None seen /hpf (Few); Urobilinogen Urine 0.2 mg/dL (<2.0); WBC Urine 0-5 /hpf
[2023-06-04 16:23] LABS: Add Urine Microscopic? YES
[2023-06-04 16:37] LABS: Calcium 15.4 mg/dL (8.4-10.2)
--- NOTE | 2023-06-04 17:58 | ED.AMS ---
HPI - Altered Mental Status General Chief Complaint: Altered Mental Status Stated Complaint: AMS Time Seen by Provider: 06/04/23 17:44 History of Present Illness HPI narrative: Patient is an 82 year old male with history of cerebral cysts, anorexia, TIA, CVA, dementia with psychotic disturbances, anxiety, DVT, cognitive communication deficits here with altered mental status. He was reportedly sent in by his facility where he was being cared for by an agency nurse who was unfamiliar with him, unsure of what his baseline mental status is. Patient is lying in bed, does not provide much of a history. He does note that he has some abdominal pain, believes he has vomited. On further discussion with family, it appears he has been this altered for the last 2 weeks and difficult to wake up. She notes he was similar to this at his last discharge from the hospital. Staff reportedly notes he wont wake up and take any medications. She discussed her worry about his mental status yesterday with staff, today he was brought into the ER for evaluation. Related Data Home Medications Medication Instructions Recorded Confirmed amlodipine 10 mg tablet 10 mg PO DAILY 05/23/23 05/23/23 apixaban 5 mg tablet (Eliquis) 5 mg PO BID 05/23/23 05/23/23 aspirin 81 mg tablet 81 mg PO DAILY 05/23/23 05/23/23 bisacodyl 10 mg rectal suppository 10 mg RECTAL DAILY PRN Constipation 05/23/23 05/23/23 cyanocobalamin (vitamin B-12) 1,000 mcg subcut WEEKLY 05/23/23 05/23/23 1,000 mcg/mL injection solution donepezil 5 mg tablet 5 mg PO DAILY 05/23/23 05/23/23 haloperidol 0.5 mg tablet 0.5 mg PO DAILY 05/23/23 05/23/23 haloperidol 1 mg tablet 1 mg PO DAILY 05/23/23 05/23/23 magnesium citrate (Citroma oral 296 ml PO DAILY PRN Constipation 05/23/23 05/23/23 solution) magnesium hydroxide 400 mg/5 mL 30 ml PO DAILY 05/23/23 05/23/23 oral suspension (Milk of Magnesia) megestrol 400 mg/10 mL (40 mg/mL) 800 mg PO DAILY 05/23/23 05/23/23 oral suspension memantine 5 mg tablet 5 mg PO BID 05/23/23 05/23/23 mirtazapine 15 mg tablet 15 mg PO DAILY 05/23/23 05/23/23 polyethylene glycol 3350 17 gram 17 g PO DAILY PRN Constipation 05/23/23 05/23/23 oral powder packet quetiapine 25 mg tablet 25 mg PO DAILY 05/23/23 05/23/23 sennosides 8.6 mg-docusate sodium 1 tab-cap PO BID 05/23/23 05/23/23 50 mg tablet (Senna Plus) sodium phosphates 19 gram-7 118 ml RECTAL ONCE PRN Constipation 05/23/23 05/23/23 gram/118 mL enema (Fleet Enema) Allergies Allergy/AdvReac Type Severity Reaction Status Date / Time No Known Allergies Allergy Verified 05/16/23 21:33 Review of Systems Review of Systems: ROS unobtainable: Yes unobtainable due to mental status [facility] Past Medical History Medical History (Updated 06/04/23 @ 21:16 by Amie Odonnell MD) Anorexia Anxiety Cerebral cysts Cognitive communication deficit CVA (cerebral vascular accident) Dementia with psychotic disturbance DVT (deep venous thrombosis) Hypercalcemia TIA (transient ischemic attack) Vitamin A deficiency Social History Social History Smoking status: Unknown if ever smoked Alcohol intake: unknown Substance use: unknown Spiritual care concerns: No Exam Narrative: GENERAL: Ill-appearing HEAD: Normocephalic, atraumatic. EYES: PERRLA and EOMI. ENT: Nares clear. Mucous membranes moist. Dried emesis present in facial hair NECK: Supple. CHEST: Clear to auscultation. No respiratory distress. HEART: Regular rate and rhythm. Normal peripheral pulses. ABDOMEN: Soft, epigastric tenderness, winces on exam, no guarding. EXTREMITIES: Normal range of motion. No edema. SKIN: Warm to touch, no rash. NEURO: Obtunded, wakes to voice and pain, answers simple questions only, no lateralizing deficits appreciated. Course Course Emergency Course: Chart review performed. Patient here from [facility] for new onset altered mental status. History of cognitive communication deficit, unknown baseline mental statu
[2023-06-04 18:28] LABS: Lipase 166 U/L (23-300)
[2023-06-04 18:29] LABS: CRP 0.5 mg/dL (<1.0)
[2023-06-04 18:43] LABS: Troponin I 0.143 ng/mL (0.000-0.034)
[2023-06-04] MEDS: LACTATED RINGERS 1,000 ML 999 ML IV CONT (19:03)
[2023-06-04 20:40] LABS: Ammonia < 9 umol/L (9-30); Lactic Acid Reflex 3.3 mmol/L (0.7-2.0)
[2023-06-04 20:56] LABS: Troponin I 0.148 ng/mL (0.000-0.034)
--- NOTE | 2023-06-04 21:06 | PC.NURSE ---
Pt is a hard stick. Phlebotomy called to obtain 2nd set of blood cultures.
--- NOTE | 2023-06-04 21:07 | PM.IMHP ---
H&P: HPI History of Present Illness Date/Time: 06/04/23 21:07 Chief Complaint: altered mental status Narrative: This is an 82-year-old male with past medical history significant for dementia, deep vein thrombosis on anticoagulation, stroke, patient recently treated for influenza type a acute kidney injury and hypercalcemia sent home was brought today to the emergency room due to concerns for patient's altered mental status being lethargic, Poor per orally intake, poor appetite. At the time of my visit patient is lethargic unable to give any history minimal responsive. Preliminary workup was significant for sodium 158, creatinine of 3 BUN 60. WBC showed a leukocyte count of 15,000. patient has been admitted for further evaluation management and treatment. EXAMINATION: CT brain wo con DATE: 06/04/2023 16:58 INDICATION: Altered mental status TECHNIQUE: Computed tomography (CT) of the head was performed without intravenous contrast. Sagittal and coronal reconstructions were performed. The mA was adjusted according to patient size. Iterative reconstruction technique was employed. The dose-length product was 681.00 mGy-cm. COMPARISON: 05/16/2023 FINDINGS: No significant change in a fluid collection of CSF attenuation at the anterior aspect of the right middle cranial fossa which appears to exert mild mass effect upon the anterior right temporal lobe without associated encephalomalacia which would be most consistent with an arachnoid cyst. No acute intracranial hemorrhage, acute infarction or other abnormal extra axial fluid collection. There is mild scattered white matter hypoattenuation consistent with chronic small vessel ischemic disease. Symmetric prominence of the sulci consistent with moderate age-appropriate diffuse cerebral volume loss. Ventricles are normal and symmetric. No mass/mass effect. The orbits, paranasal sinuses and mastoid air cells are normal. IMPRESSION: 1. No acute intracranial process. 2. Age-related changes including moderate diffuse volume loss and mild scattered white matter hypoattenuation consistent with chronic small vessel ischemic disease. 3. Arachnoid cyst at the right middle cranial fossa. EXAMINATION: CT chest abdomen pelvis wo con DATE: 06/04/2023 18:23 INDICATION: sepsis . TECHNIQUE: Computed tomography (CT) of the chest, abdomen, and pelvis was performed with 100 mL Omnipaque-350 intravenous contrast. Automated exposure control and iterative reconstruction technique were employed. The dose-length product was 621.06 mGy-cm. COMPARISON: None FINDINGS: CHEST: Thoracic aorta: 4.2 cm ascending aorta. Mild arch calcification. The left vertebral artery origin heights directly off the arch. Lung parenchyma and airways: Senescent change. Minimal dependent atelectasis/scar. Thoracic inlet, axillae and chest wall: No thyroid or soft tissue mass. No axillary lymphadenopathy. Mediastinum: No mass or lymphadenopathy. Heart and pericardium: Normal heart size. No pericardial effusion. Coronary artery calcifications: Mild. Pleura: No effusion or mass. Thoracic bones: No acute osseous finding in the chest. ABDOMEN/PELVIS: Liver: Normal.? Biliary/Gallbladder: Borderline distended, dependent stones and/or sludge, without inflammatory change. No bile duct dilation. Pancreas: No mass or duct dilation. Spleen: Normal. Adrenals:No mass. Kidneys: 16 mm right UPJ stone. Severe right pelviectasis and caliectasis. Simple left upper pole cyst severe right renal atrophy GI tract: Surgical clips at the GE junction. No small or large bowel dilation. Normal appendix. Diverticulosis without diverticulitis. Mesentery/Peritoneum: No ascites, mass, or free air. Retroperitoneum: No mass Pelvis: 15 mm dependent bladder stone. Mild bladder wall thickening. Prostatomegaly. Soft Tissues: Soft tissues and body wall unremarkable. Abdominopelvic bones:? No acute osseous finding in the abdomen/pelvis. IMPRESSION: Cholelithiasis and/
--- NOTE | 2023-06-04 21:47 | PC.NURSE ---
Phlebotomy at bedside.
[2023-06-04] MEDS: CEFEPIME 2 GM/NS 50 ML 2 GM/50 ML BAG IVPB (22:11)
--- NOTE | 2023-06-04 22:26 | ADMGEN ---
This patient, Salo Morgan, was admitted to IMU Room 212-01. Patient/family oriented to hospital policies and general routines including ID bracelet, bed and alarms, visiting hours, pain management, procedures, bathroom and other care routines, personal items, smoking policy, room service/diet, and visiting hours. Information on how to activate the Rapid Response Team has been discussed. Patient/Family are encouraged to report perceived risks to care and to ask questions if they do not understand what they are told or what they should do.
[2023-06-04 22:41] LABS: Troponin I 0.144 ng/mL (0.000-0.034)
[2023-06-04] MEDS: metroNIDAZOLE 500 MG/ISO 100ML 500 MG/100 ML BAG 100 MG IVPB (22:50)
[2023-06-04] MEDS: VANCOMYCIN 1,000 MG/NS 250 ML 1,000 MG/250 ML BAG 250 MG IVPB (23:10)
[2023-06-04 23:25] LABS: Reflex Lactic Acid Yes or No Add Lactic
[2023-06-05] VITALS (15 sets, daily range): BP systolic 114–137; BP diastolic 70–77; PULSE 57–72; RESP 14–20; TEMP 36.3–37.2; O2SAT 95–100; BMI 22.0
[2023-06-05 00:22] LABS: Lactic Acid 2.3 mmol/L (0.7-2.0)
[2023-06-05] MEDS: SODIUM CHLORIDE 0.9% IV 500 ML 10 ML (00:36)
[2023-06-05] MEDS: DEXTROSE 5%/0.45% SOD CHL 1,000 ML 65 ML IV CONT (01:34)
[2023-06-05 05:36] LABS: Estimated CRCL calculation 16 ml/min; Estimated Glomerular Filt Rate 23
[2023-06-05 09:16] LABS: Basophils Absolute Auto 0.1 K/mm3 (0.0-0.1); Basophils Percent Auto 0.4 % (0.2-1.2); Eosinophils Percent Auto 0.1 % (0-4.4); Hematocrit 42.7 % (42.0-52.0); Immature Granulocyte Percent A 1.4 % (0-0.5); Lymphocytes Absolute Auto 1.46 K/mm3 (0.9-3.2); Lymphocytes Percent Auto 10.3 % (18.3-44.2); Mean Corpuscular HGB Conc 30.4 g/dl (32-36); Mean Corpuscular Hemoglobin 31.6 pg (26-34); Mean Corpuscular Volume 103.6 fl (80-100); Monocytes Absolute Auto 0.9 K/mm3 (0.1-0.6); Monocytes Percent Auto 6.2 % (2.6-8.5); Neutrophils Absolute Auto 11.5 K/mm3 (1.3-6.7); Neutrophils Percent Auto 81.6 % (45.5-73.1); Platelet Count Result 181 k/mm3 (150-375); Red Blood Count 4.12 M/mm3 (4.6-6.20); Red Cell Distribution Width 14.8 % (11.5-14.5); White Blood Count 14.1 K/mm3 (4.5-10.0)
[2023-06-05 09:51] LABS: Anion Gap 7 mmol/L (8-16); Blood Urea Nitrogen 71 mg/dL (9-20); Carbon Dioxide 17 mmol/L (22-30); Chloride 132 mmol/L (98-107); Estimated CRCL calculation 17 ml/min; Estimated Glomerular Filt Rate 24; Glucose 195 mg/dL (65-110); Potassium 3.1 mmol/L (3.4-5.0); Sodium 156 mmol/L (137-145)
--- NOTE | 2023-06-05 09:55 | PM.CNNEP ---
Assessment and Plan Assessment and plan (1) Acute kidney injury superimposed on chronic kidney disease: Code(s): N17.9 - Acute kidney failure, unspecified; N18.9 - Chronic kidney disease, unspecified Status: Acute (2) Acute encephalopathy: Code(s): G93.40 - Encephalopathy, unspecified Status: Acute (3) Acute hypernatremia: Code(s): E87.0 - Hyperosmolality and hypernatremia Status: Acute (4) Leukocytosis: Qualifiers: Leukocytosis type: unspecified Qualified Code(s): D72.829 - Elevated white blood cell count, unspecified Code(s): D72.829 - Elevated white blood cell count, unspecified Status: Acute (5) Dementia with psychotic disturbance: Code(s): F03.92 - Unspecified dementia, unspecified severity, with psychotic disturbance Status: Acute Plan The patient has recurrence of the same issues that led to his hospitalization earlier this month including acute kidney injury on top of his baseline chronic kidney disease, hypercalcemia, hypernatremia, volume depletion, and altered mental status. The patient had a fairly extensive workup and evaluation on his previous hospitalization for all these issues and was felt that his underlying conditions/problem was that of poor oral intake /hydration as these disturbances were corrected with a combination of IV fluids and medications given toward this intervention. Since it would seem that the same issues have recurred again, I suspect the patient right clear choir some type of enteral feeding via a G-tube or NG tube placement to adequately resuscitated him from his severe volume depletion. IV fluids will likely help but this is only a temporary measure and as already mentioned, this seems to have recurred within a few weeks after his discharge from [facility] not too long ago. Although supportive interventions will likely help improve his current medical issues, I very much doubt that this will be a long-term solution. I would consider discussing with the patient's family long-term goals of therapy as I suspect he will require something more than just IV fluids and medications to fully maintain stability in his renal function as well as his electrolytes as well as to prevent ongoing volume depletion / dehydration. I will continue follow the patient with you while he remains hospitalized make further recommendations as deemed necessary. Thank you for allowing me to participate in the care of this patient. History of Present Illness Reason for Consult Consult date: 06/05/23 Reason for consult: acute renal failure and hypernatremia Chief Complaint Chief complaint: Hypernatremia, CHINEDU, Encephalopathy, Dehydration, E History of Present Illness Narrative: All the information that I obtained is from review of the electronic medical record As well as my personal experience taking care of the patient on his last hospitalization as is difficult to get any history from the patient due to his current altered mental status in association with dementia. The patient is an 82-year-old male with a past medical history as outlined below who presented to [facility] Emergency room for further evaluation altered mental status. The specifics of his altered mental status is not clear particularly since he has underlying dementia. However, family reports that he has been somewhat off of his baseline status for last week or so if not longer in association with poor oral intake. Given this reported change, his nursing facility sent him to the emergency room for further assessment. Workup and evaluation in the emergency room demonstrated the patient be hemodynamically stable and afebrile. Routine blood tests demonstrated elevated white blood cell count of 15.1 as well as evidence of acute kidney injury on top of his baseline chronic kidney disease in association with hypercalcemia and hypernatremia. His urinalysis was negative
[2023-06-05 11:53] LABS: Calcium 14.3 mg/dL (8.4-10.2)
[2023-06-05] MEDS: DEXTROSE 5%/0.45% SOD CHL 1,000 ML 100 ML IV CONT (12:43)
[2023-06-05] MEDS: POTASSIUM CHLORIDE INJ 40 MEQ in SODIUM CHLORIDE 0.9% IV 500 ML 130 MEQ IVPB (12:43)
[2023-06-05 12:53] LABS: Anion Gap 8 mmol/L (8-16); Blood Urea Nitrogen 70 mg/dL (9-20); Carbon Dioxide 23 mmol/L (22-30); Chloride 130 mmol/L (98-107); Estimated CRCL calculation 16 ml/min; Estimated Glomerular Filt Rate 22; Glucose 146 mg/dL (65-110); Potassium 3.1 mmol/L (3.4-5.0); Sodium 161 mmol/L (137-145)
[2023-06-05 13:39] LABS: Calcium 14.8 mg/dL (8.4-10.2)
--- NOTE | 2023-06-05 14:10 | P.PNIM_ITS ---
Progress Note: A&P Assessment and Plan (1) Acute encephalopathy: Code(s): G93.40 - Encephalopathy, unspecified Status: Acute Assessment and Plan: Patient apparently presented to the hospital due to altered mental status although patient's family and previous providers that have taking care of this patient state that this mental status has been his baseline for the last couple weeks. * Discussion with Nephrology alluded to patient's nutritional status having to do with his mental status. * Patient also has history of dementia. * Supportive care (2) Acute hypernatremia: Code(s): E87.0 - Hyperosmolality and hypernatremia Status: Acute Assessment and Plan: on presentation patient's sodium was 158. * Continue to trend sodium levels. * D5W at 100 mL/hr * Okay to replace at 11 mEq daily * Nephrology is consulted and appreciate recommendations. (3) Acute kidney injury superimposed on chronic kidney disease: Code(s): N17.9 - Acute kidney failure, unspecified; N18.9 - Chronic kidney disease, unspecified Status: Acute Assessment and Plan: It appears that patient has had elevated BUN and creatinine over the past month. * Monitor BUN and creatinine daily * IV fluids * Nephrology consulted (4) Leukocytosis: Qualifiers: Leukocytosis type: unspecified Qualified Code(s): D72.829 - Elevated white blood cell count, unspecified Code(s): D72.829 - Elevated white blood cell count, unspecified Status: Acute Assessment and Plan: Patient recently treated in the hospital for influenza. There is no sign of pneumonia, UTI or other infection on imaging. * Patient given antibiotics in the ED. Will hold for now due to lack of eviden ce for infection. * Cultures in progress * Monitor CBC. (5) Dementia with psychotic disturbance: Code(s): F03.92 - Unspecified dementia, unspecified severity, with psychotic disturbance Status: Acute Assessment and Plan: * currently holding all per orally meds patient with lethargy * restart as needed (6) Hypercalcemia: Code(s): E83.52 - Hypercalcemia Status: Acute Assessment and Plan: On presentation patient's calcium was 15.4. * Discuss this with reptile keeper and he believes that due to patient's nutritional and volume status he is experiencing these calcium levels. * It is also recommended he follow-up with Endocrinology. * Nephrology recommending feeding tube at this time. * Will discuss with RD Subjective Date/time seen: 06/05/23 14:10 Interval history: Patient is responsive to pain but unable to answer any of my questions. After discussing with colleagues and previous providers if taken care of this patient this has been patient mental status baseline. Patient is not eating or drinking appropriately. he has multiple electrolyte abnormalities that has been worked up over the past month. Previously patient improved with IV fluids. Discussed with registered dietitian regarding patient's overall nutritional status. @3 pm 20 minute conversation with family member and it was decided that patient will move into comfort measures and code status changed to DNR. Patients daughter was in agreement with this. Exam Narrative: GENERAL: Comfortable, no acute distress, cachectic HENMT: Dry mucous membranes, poor dentition EYES: EOM intact b/l, pupils round reactive to light NECK: no lymphadenopath
--- NOTE | 2023-06-05 14:10 | PM.IMPN ---
Progress Note: A&P Assessment and Plan (1) Acute encephalopathy: Code(s): G93.40 - Encephalopathy, unspecified Status: Acute Assessment and Plan: Patient apparently presented to the hospital due to altered mental status although patient's family and previous providers that have taking care of this patient state that this mental status has been his baseline for the last couple weeks. Discussion with Nephrology alluded to patient's nutritional status having to do with his mental status. Patient also has history of dementia. Supportive care (2) Acute hypernatremia: Code(s): E87.0 - Hyperosmolality and hypernatremia Status: Acute Assessment and Plan: on presentation patient's sodium was 158. Continue to trend sodium levels. D5W at 100 mL/hr Okay to replace at 11 mEq daily Nephrology is consulted and appreciate recommendations. (3) Acute kidney injury superimposed on chronic kidney disease: Code(s): N17.9 - Acute kidney failure, unspecified; N18.9 - Chronic kidney disease, unspecified Status: Acute Assessment and Plan: It appears that patient has had elevated BUN and creatinine over the past month. Monitor BUN and creatinine daily IV fluids Nephrology consulted (4) Leukocytosis: Qualifiers: Leukocytosis type: unspecified Qualified Code(s): D72.829 - Elevated white blood cell count, unspecified Code(s): D72.829 - Elevated white blood cell count, unspecified Status: Acute Assessment and Plan: Patient recently treated in the hospital for influenza. There is no sign of pneumonia, UTI or other infection on imaging. Patient given antibiotics in the ED. Will hold for now due to lack of evidence for infection. Cultures in progress Monitor CBC. (5) Dementia with psychotic disturbance: Code(s): F03.92 - Unspecified dementia, unspecified severity, with psychotic disturbance Status: Acute Assessment and Plan: currently holding all per orally meds patient with lethargy restart as needed (6) Hypercalcemia: Code(s): E83.52 - Hypercalcemia Status: Acute Assessment and Plan: On presentation patient's calcium was 15.4. Discuss this with paver operator and he believes that due to patient's nutritional and volume status he is experiencing these calcium levels. It is also recommended he follow-up with Endocrinology. Nephrology recommending feeding tube at this time. Will discuss with RD Subjective Date/time seen: 06/05/23 14:10 Interval history: Patient is responsive to pain but unable to answer any of my questions. After discussing with colleagues and previous providers if taken care of this patient this has been patient mental status baseline. Patient is not eating or drinking appropriately. he has multiple electrolyte abnormalities that has been worked up over the past month. Previously patient improved with IV fluids. Discussed with registered dietitian regarding patient's overall nutritional status. @3 pm 20 minute conversation with family member and it was decided that patient will move into comfort measures and code status changed to DNR. Patients daughter was in agreement with this. Exam Narrative: GENERAL: Comfortable, no acute distress, cachectic HENMT: Dry mucous membranes, poor dentition EYES: EOM intact b/l, pupils round reactive to light NECK: no lymphadenopathy RESPIRATORY: clear to auscultation CARDIO: RRR GI: soft, nontender, bowel sounds present SKIN: no rashes EXTREMITIES: no edema, redness or tenderness Objective Data Vital Signs Vital Signs: Vital Signs - 24 hr 06/04/23 15:01 06/04/23 15:15 06/04/23 16:38 Temperature 98.6 F 97.9 F Pulse Rate 76 78 Respiratory Rate 20 20 Blood Pressure 131/89 109/84 Pulse Oximetry 97 97 96 Oxygen Delivery Room Air Room Air 06/04/23 19:01 06/04/23 20:21
[2023-06-05 22:32] LABS: Vancomycin Trough 9.1 ug/mL (10.0-20.0)
--- NOTE | 2023-06-05 23:52 | PC.NURSE ---
SBar faxed followed by verbal report given to Kitty MILLER. Patient transferred via bed to room 320.
[2023-06-06 04:00] VITALS: BP 124/75; PULSE 63; RESP 13; TEMP 37.1; O2SAT 97
[2023-06-06] MEDS: MORPHINE SULFATE (*CRX) 2 MG/ML INJ IV PUSH (07:48)
[2023-06-06 08:00] VITALS: BP 239/201; PULSE 67; RESP 16; TEMP 36.3; O2SAT 96
[2023-06-06 12:00] VITALS: BP 162/84; PULSE 79; RESP 20; TEMP 36.3; O2SAT 99
--- NOTE | 2023-06-06 12:40 | P.CDI_ITS ---
CDI Query Clarification Request Documentation in the medical record indicates that this patient has been jeovanny gnosed with Encephalopathy. Additional findings also documented in the medical record: NA 158 K 3.1 CL 130 BUN 68 Creatinine 3.00 Progress Note: A&P Assessment and Plan (1) Acute encephalopathy: ?Code(s): G93.40 - Encephalopathy, unspecified ?Status:?Acute ?Assessment and Plan: Patient? apparently presented to the hospital due to altered mental status although patient's family and previous providers that have taking care of this patient state that this mental status has been his baseline for the last couple weeks. * Discussion with Nephrology alluded to patient's nutritional status having to do with his mental status.? * Patient also has history of dementia. * Supportive care Based on your medical judgement, can you further clarify the diagnosis in the progress notes if known: * Metabolic Encephalopathy * Toxic Encephalopathy * Other condition (please specify) * None of the above/ Not applicable. <Mindy Arias RN - Last Filed: 06/06/23 12:49> Clarified Diagnosis Clarified Diagnosis: Metabolic Encephalopathy <Deidra Neville MD - Last Filed: 06/07/23 16:02>
--- NOTE | 2023-06-06 14:52 | PM.IMPN ---
Progress Note: A&P Assessment and Plan (1) Acute encephalopathy: Code(s): G93.40 - Encephalopathy, unspecified Status: Acute Assessment and Plan: Patient apparently presented to the hospital due to altered mental status although patient's family and previous providers that have taking care of this patient state that this mental status has been his baseline for the last couple weeks. Discussion with Nephrology alluded to patient's nutritional status having to do with his mental status. Patient also has history of dementia. Supportive care and comfort care Family will be talking to hospice later this evening Comfort measures iv morphine iv ativan and scopolamine patch (2) Acute hypernatremia: Code(s): E87.0 - Hyperosmolality and hypernatremia Status: Acute Assessment and Plan: Nephrology is consulted and appreciate recommendations earlier in admission (3) Acute kidney injury superimposed on chronic kidney disease: Code(s): N17.9 - Acute kidney failure, unspecified; N18.9 - Chronic kidney disease, unspecified Status: Acute Assessment and Plan: Nephrology consulted earlier in admission (4) Leukocytosis: Qualifiers: Leukocytosis type: unspecified Qualified Code(s): D72.829 - Elevated white blood cell count, unspecified Code(s): D72.829 - Elevated white blood cell count, unspecified Status: Acute Assessment and Plan: Patient recently treated in the hospital for influenza. There is no sign of pneumonia, UTI or other infection on imaging. (5) Dementia with psychotic disturbance: Code(s): F03.92 - Unspecified dementia, unspecified severity, with psychotic disturbance Status: Acute Assessment and Plan: currently holding all per orally meds patient with lethargy restart as needed (6) Hypercalcemia: Code(s): E83.52 - Hypercalcemia Status: Acute Assessment and Plan: on labs Subjective Date/time seen: 06/06/23 14:52 Interval history: Patient is responsive to pain but unable to answer any of my questions. After discussing with colleagues and previous providers if taken care of this patient this has been patient mental status baseline. Patient is not eating or drinking appropriately. he has multiple electrolyte abnormalities that has been worked up over the past month. Previously patient improved with IV fluids. Discussed with registered dietitian regarding patient's overall nutritional status. Pt is presently in comfort care on morphine IV and Ativan IV, DNR with comfort measures Family coming in to talk to Hospice team continue present care for now Review of Systems Review of Systems: Responsive to pain, comfortable, encephalopathic Exam Narrative: GENERAL: Comfortable, no acute distress, cachectic HENMT: Dry mucous membranes, poor dentition EYES: EOM intact b/l, pupils round reactive to light NECK: no lymphadenopathy RESPIRATORY: clear to auscultation CARDIO: RRR GI: soft, nontender, bowel sounds present SKIN: no rashes EXTREMITIES: no edema, redness or tenderness Objective Data Vital Signs Vital Signs: Vital Signs - 24 hr 06/05/23 19:47 06/05/23 20:58 06/05/23 23:59 Temperature 36.4 C L 37.2 C Pulse Rate 57 L 61 71 Respiratory Rate 20 20 14 Blood Pressure 133/73 133/75 Pulse Oximetry 96 95 95 Oxygen Delivery Room Air 06/06/23 04:00 06/06/23 08:00 06/06/23 12:00 Temperature 37.1 C 36.3 C L 36.3 C L Pulse Rate 63 67 79 Respiratory Rate 13 16 20 Blood Pressure 124/75 239/201 H 162/84 H Pulse Oximetry 97 96 99 Oxygen Delivery Intake/Output Intake/Output: Intake & Output 06/03/23 06/04/23 06/05/23 06/06/23 23:59 23:59 23:59 23:59 Intake Total 1000 1000 Output Total 75 250 Balance 925 1000 -250 Meds/Results Medications: Active Medications Generic Name Dose Route
[2023-06-06 16:00] VITALS: BP 167/84; PULSE 73; RESP 16; TEMP 36.4; O2SAT 97
[2023-06-06] MEDS: LORazepam INJ (*CRX) 2 MG/ML VIAL 1 MG IV PUSH (17:32)
--- NOTE | 2023-06-06 18:50 | PC.NURSE ---
Pt had a morphine drip ordered as pt was struggling to stay pain controlled with morphine IVP. This RN gave pt ativan and pt able to rest comfortably. Discussed with MD about holding drip as ativan working better. MD ok with holding. Drip placed into refrigerated lock box.
[2023-06-06 20:00] VITALS: BP 124/83; PULSE 70; RESP 18; TEMP 36.2; O2SAT 97
[2023-06-06] MEDS: ATROPINE SULFATE 1% OPHTH SOLN 5 ML BOTTLE 1 DROP SUBLINGUAL (20:27)
[2023-06-06 23:52] VITALS: BP 139/89; PULSE 84; RESP 24; TEMP 36.2; O2SAT 86
[2023-06-07] MEDS: LORazepam INJ (*CRX) 2 MG/ML VIAL 1 MG IV PUSH (02:38)
[2023-06-07] MEDS: SCOPOLAMINE 1 MG PATCH 1 PATCH TRANSDERM (03:47)
[2023-06-07] MEDS: MORPHINE 50 MG/NS 100ML (*CRX) 50 MG/100 ML BAG IV CONT (04:12)
--- NOTE | 2023-06-07 11:08 | P.DN_ITS ---
Discharge Summary Date and Time Date of : 06/07/23 Time of : 04:40 Provider Pronounced By: Shelli Garzon Probable Cause of Probable Cause of : Encephalopathy Hypernatremia Acute on chronic kidney disease Recent influenza History of dementia Summary Hospital Course: 82-year-old male with past medical history significant for dementia, deep vein thrombosis on anticoagulation, stroke, patient recently treated for influenza type a acute kidney injury and hypercalcemia sent home was brought today to the emergency room due to concerns for patient's altered mental status being lethargic,? Poor per orally intake, poor appetite. ? At the time of my visit patient is lethargic unable to give any history minimal responsive. Pt is presently in comfort care on morphine IV and Ativan IV, DNR with comfort measures. Pt passed at 440 am. Additional Data Confirmation of as documented by pronouncing clinician: Pupillary Reflex, Palpable Pulses, Response to Stimuli, Heart Tones and Breath Sounds Name of Provider Notified: Gertrude Gage Time Provider Notified: 05:00 Provider Engagement Executive Notified: Yes Date [facility] Notified of : 06/07/23 Time [facility] Notified of : 04:50
== END 2023-06-07 04:40 | disposition expired | DRG 71 ==
LOC: ANHED 21:16 → ANHIMU 21:42 → ANH3MEDSUR 06-05 23:54
PROVIDERS: Internal Medicine Critical Care Medicine; Internal Medicine Nephrology; Admitting Provider Internal Medicine; Emergency Provider Student in an Organized Health Care Education/Training Program; PCP Internal Medicine; Visit Provider Family Medicine
DX: G93.41 Metabolic encephalopathy (principal); E87.0 Hyperosmolality and hypernatremia; N17.9 Acute kidney failure, unspecified; F03.92 Unspecified dementia, unspecified severity, with psychotic disturbance; D72.829 Elevated white blood cell count, unspecified; E50.9 Vitamin A deficiency, unspecified; E86.0 Dehydration; F41.9 Anxiety disorder, unspecified; N18.9 Chronic kidney disease, unspecified; Z66 Do not resuscitate; Z79.01 Long term (current) use of anticoagulants; Z86.73 Personal history of transient ischemic attack (TIA), and cerebral infarction without residual deficits; Z86.718 Personal history of other venous thrombosis and embolism; Z79.82 Long term (current) use of aspirin
CPT/HCPCS: 36415; 70450; 71045; 71250; 74176; 80048; 80053; 80202; 81001; 82140; 82565; 83605; 83690; 84484; 85025; 85610; 85730; 86140; 87040; 93005; 96360; 99285; A9270; J0692; J1836; J2060; J2270; J3370; J3480; J7040; J7120